=== PATIENT | male | born 1970 | race Caucasian/White ===

== ENCOUNTER 2017-05-04 06:52 | Emergency (ER) | payer BC, OTHER ==
[~2017-05-04] VITALS: Ht 177.8 cm; Wt 171.3 kg
[~2017-05-04 06:52] MED LIST: ABL10 PO; LPT40 PO; ONDA8TAB12 PO; SIME80CH23 PO; TPM100 PO
[2017-05-04 06:55] VITALS: Ht 177.8 cm; Wt 171.3 kg
--- NOTE | 2017-05-04 07:08 | EMERGENCY ROOM VISIT NOTE ---
History First contact with patient: 06:58 Chief Complaint: SHORTNESS OF BREATH Stated Complaint: CAN'T CATCH BREATH Nursing Triage Summary: Pt states unable to catch his breath since yesterday. Denies lightheadedness or cp. Denies recent illness. Denies cough. Denies hx of same. Uses cpap at night. History of Present Illness The patient is a 46 year old male who presents to the Emergency Room via private vehicle with complaints of "can't catch breath". The patient states that he does wear CPAP at night, and has been doing well up until yesterday when he returned home from his hunting camp he did not feel well. He describes it as "lethargic". He states he felt as though he just wanted to sleep. He notes that he also developed shortness of breath. He denies any chest pain with this. He feels as though he cannot fully catch his breath. He denies any fevers, cough or congestion. He notes that this shortness of breath is worse with exertion. He denies any recent leg swelling. There is no history of heart attack, CHF or PE that he is aware of. Review of Systems A complete 10-point Review of Systems was discussed with the patient, with pertinent positives and negatives listed in the History of Present Illness. All remaining Review of Systems questions can be considered negative unless otherwise specified. Past Medical/Surgical History Medical Problems: (1) Bipolar disorder (2) Depression (3) Dyslipidemia (4) Migraine (5) Obesity, morbid, BMI 40.0-49.9 (6) Obstructive sleep apnea on CPAP (7) Prediabetes (8) Syncope Surgical Problems: (1) H/O hernia repair Family History Cancer FH: CAD (coronary artery disease) GRANDFATHER (FL and CABG in his 60s) Stroke MOTHER (age 71) Social History Smoking Status: Never Smoker Alcohol Use: occasionally Drug Use: none Marital Status: Occupation Status: employed Current/Historical Medications Scheduled Aripiprazole (Abilify), 10 MG PO QPM Atorvastatin (Atorvastatin Calcium), 40 MG PO DAILY Topiramate (Topiramate), 100 MG PO BID Scheduled PRN Albuterol Hfa (Ventolin Hfa), 1-2 PUFFS INH Q6H PRN for SOB/Wheezing Physical Exam Vital Signs Date Time Temp Pulse Resp B/P (MAP) Pulse Ox O2 Delivery O2 Flow Rate FiO2 05/04/17 08:37 79 20 151/96 96 Room Air 05/04/17 07:15 72 05/04/17 07:15 72 20 137/86 95 Room Air 05/04/17 07:10 95 Room Air 05/04/17 07:05 95 Room Air 05/04/17 06:55 99 22 182/94 100 Room Air Physical Exam VITAL SIGNS - Vital signs and nursing notes were reviewed. Stable. GENERAL - 46-year-old male appearing his stated age who is in no acute distress but does appear short of breath while conversing. Communicates well with provider and answers questions appropriately. SKIN - Without rashes. HEAD - NC/AT. EYES -Sclera anicteric. EARS - No deformities of external structures noted on gross examination bilaterally. NOSE - Midline and without cyanosis. No epistaxis or purulent drainage noted. MOUTH/OROPHARYNX - Without perioral cyanosis. NECK - Neck with FROM. LUNGS - Chest wall symmetric without accessory muscle use, intercostals retractions, or central cyanosis. Normal vesicular breath sounds CTA B/L. No wheezes, rales, or rhonchi appreciated. CARDIAC - RRR with S1/S2. No murmur, rubs, or gallops appreciated. ABDOMEN - Abdominal contour normal without pulsations or visible masses. No tenderness. EXTREMITIES - No clubbing or peripheral cyanosis. No pretibial edema present.+5/ 5 strength noted in UE/LE bilaterally. NEUROLOGIC - Cranial nerves II through XII grossly intact. Sensory intact to light touch throughout. PSYCH - A&O, and cooperates fully with examiner. Pt is very pleasant and interacts well with examiner. Medical Decision & Procedures ER Provider Diagnostic Interpretation: SINGLE VIEW CHEST CLINICAL HISTORY: Dyspnea. FINDINGS: An AP, portable, upright chest radiograph is compared to study dated 04/18/2016. The examination is degraded by portable technique, large body habitus, and apical lordotic positioning. The heart is top normal for projection. There are low lung volumes with elevation of the right hemidiaphragm and bibasilar atelectasis. No large pleural effusion or pneumothorax is seen. The bony thorax is grossly intact. IMPRESSION: Low lung volumes with no acute cardiopulmonary abnormality. Electronically signed by: Tomasz Patel M.D. 05/04/2017 7:36 AM Dictated Date/Time: 05/04/2017 7:35 AM Laboratory Results 05/04/17 07:16 Red Blood Count 4.48, Mean Corpuscular Volume 96.2, Mean Corpuscular Hemoglobin 31.0, Mean Corpuscular Hemoglobin Concent 32.3, Mean Platelet Volume 10.0, Neutrophils (%) (Auto) 70.9, Lymphocytes (%) (Auto) 16.2, Monocytes (%) (Auto) 10.4, Eosinophils (%) (Auto) 1.7, Basophils (%) (Auto) 0.4, Neutrophils # (Auto ) 3.42, Lymphocytes # (Auto) 0.78, Monocytes # (Auto) 0.50, Eosinophils # (Auto ) 0.08, Basophils # (Auto) 0.02 05/04/17 07:16 Test 05/04/17 07:16 05/04/17 07:20 05/04/17 07:22 White Blood Count 4.82 K/uL (4.8-10.8) Red Blood Count 4.48 M/uL (4.7-6.1) Hemoglobin 13.9 g/dL (14.0-18.0) Hematocrit 43.1 % (42-52) Mean Corpuscular Volume 96.2 fL (80-100) Mean Corpuscular Hemoglobin 31.0 pg (25-34) Mean Corpuscular Hemoglobin Concent 32.3 g/dl (32-36) Platelet Count 182 K/uL (130-400) Mean Platelet Volume 10.0 fL (7.4-10.4) Neutrophils (%) (Auto) 70.9 % Lymphocytes (%) (Auto) 16.2 % Monocytes (%) (Auto) 10.4 % Eosinophils (%) (Auto) 1.7 % Basophils (%) (Auto) 0.4 % Neutrophils # (Auto) 3.42 K/uL (1.4-6.5) Lymphocytes # (Auto) 0.78 K/uL (1.2-3.4) Monocytes # (Auto) 0.50 K/uL (0.11-0.59) Eosinophils # (Auto) 0.08 K/uL (0-0.5) Basophils # (Auto) 0.02 K/uL (0-0.2) RDW Standard Deviation 47.0 fL (36.4-46.3) RDW Coefficient of Variation 13.4 % (11.5-14.5) Immature Granulocyte % (Auto) 0.4 % Immature Granulocyte # (Auto) 0.02 K/uL (0.00-0.02) Prothrombin Time 10.0 SECONDS (9.0-12.0) Prothromb Time International Ratio 0.9 (0.9-1.1) Activated Partial Thromboplast Time 26.0 SECONDS (21.0-31.0) Partial Thromboplastin Ratio 1.0 Anion Gap 9.0 mmol/L (3-11) Est Creatinine Clear Calc Drug Dose 174.6 ml/min Estimated GFR () 121.7 Estimated GFR (Non- 105.0 BUN/Creatinine Ratio 21.1 (10-20) Calcium Level 8.7 mg/dl (8.5-10.1) Magnesium Level 2.3 mg/dl (1.8-2.4) Total Bilirubin 0.4 mg/dl (0.2-1) Aspartate Amino Transf (AST/SGOT) 20 U/L (15-37) Alanine Aminotransferase (ALT/SGPT) 37 U/L (12-78) Alkaline Phosphatase 103 U/L (45-117) Troponin I < 0.015 ng/ml (0-0.045) Pro-B-Type Natriuretic Peptide 82 pg/ml (0-450) Total Protein 6.9 gm/dl (6.4-8.2) Albumin 3.7 gm/dl (3.4-5.0) Globulin 3.2 gm/dl (2.5-4.0) Albumin/Globulin Ratio 1.2 (0.9-2) Thyroid Stimulating Hormone (TSH) 2.830 uIu/ml (0.300-4.500) Chemistry Specimen Hemolysis Lyme Disease IgG Antibody NEG (NEG) Lyme Disease IgM Antibody NEG (NEG) Bedside Troponin I < 0.030 ng/ml (0-0.045) D-Dimer 280 ug/L FEU (0-500) Medications Administered Medications (Trade) Dose Ordered Sig/Rosalina Route Start Time Stop Time Status Last Admin Dose Admin Albuterol/ Ipratropium (Duoneb) 3 ml NOW STAT INH 05/04/17 07:43 05/04/17 07:44 DC 05/04/17 07:47 3 ML Medical Decision Patient was seen and evaluated as above. He presents to us today with shortness of breath. There is no chest pain. He is well on exam. He is not tachycardic and is saturating on room air 100%. Bedside EKG was obtained and reveals normal sinus rhythm, no ectopy or ischemic change. Patient's CBC reveals no leukocytosis. Slight anemia noted. There is no emergent metabolic process. Coags and d-dimer are normal. Patient's kidney function is appropriate. No evidence of liver failure. No evidence of heart failure and troponin is normal. TSH within normal limits. Lyme testing negative. Chest x- ray no acute process but there is borderline cardiomegaly. Patient was informed upon today's findings and I suspect is likely experiencing asthma. He does not smoke. With the d-dimer being normal, troponin being normal, chest x- ray being normal I do not suspect any emergent process. He is well on exam and was given a breathing treatment for 15 minutes and was feeling markedly improved. He was educated upon management, educated upon worrisome symptoms in which to return, had questions and provided discharge, and was discharged home in good condition. In evaluation treatment this patient following differential diagnoses were entertained: FL, PE, asthma, COPD, pericarditis, CHF, among others. Impression Primary Impression: Shortness of breath Departure Information Dispostion Home / Self-Care Condition GOOD Prescriptions Albuterol Hfa (VENTOLIN HFA) 200 Puffs/59153 Mcg Aers 1-2 PUFFS INH Q6H Y for SOB/Wheezing, #1 INHALER Prov: Emil Louis PA-C 05/04/17 Referrals No Doctor, Assigned (PCP) Patient Instructions [facility] Additional Instructions You have been treated in the Emergency Department your shortness of breath. Laboratory results and imaging studies have ruled out any emergent causes for your shortness of breath which would warrant admission or surgery. Albuterol inhaler 1-2 puffs every 4-6 hours as needed for your shortness of breath. Drink plenty of water and stay well hydrated. As with any trip to the Emergency Department, you should follow-up with your Primary Care Provider from today's visit. Return to the emergency department if your symptoms persist despite treatment plan outlined above or if the following symptoms occur: increased fevers, chills , worsening nausea/vomiting, blood in your stool or urine.
[2017-05-04 07:10] VITALS: O2SAT 95
[2017-05-04 07:26] LABS: BASO % 0.4 %; BASO ABS # 0.02 K/uL (0-0.2); COMPLETE YES; EOS % 1.7 %; HEMATOCRIT 43.1 % (42-52); IG% 0.4 %; LYMPH % 16.2 %; LYMPH ABS # 0.78 K/uL (1.2-3.4); MEAN CELL VOLUME 96.2 fL (80-100); MEAN CORPUSCULAR HGB CONC 32.3 g/dl (32-36); MONO % 10.4 %; NEUT % 70.9 %; PLATELET COUNT 182 K/uL (130-400); RED BLOOD COUNT 4.48 M/uL (4.7-6.1); WHITE BLOOD COUNT 4.82 K/uL (4.8-10.8)
[2017-05-04 07:33] LABS: INR 0.9 (0.9-1.1)
--- NOTE | 2017-05-04 07:38 | DIAGNOSTIC IMAGING REPORT ---
SINGLE VIEW CHEST CLINICAL HISTORY: Dyspnea. FINDINGS: An AP, portable, upright chest radiograph is compared to study dated 04/18/2016. The examination is degraded by portable technique, large body habitus, and apical lordotic positioning. The heart is top normal for projection. There are low lung volumes with elevation of the right hemidiaphragm and bibasilar atelectasis. No large pleural effusion or pneumothorax is seen. The bony thorax is grossly intact. IMPRESSION: Low lung volumes with no acute cardiopulmonary abnormality. Electronically signed by: Tomasz Patel M.D. 05/04/2017 7:36 AM Dictated Date/Time: 05/04/2017 7:35 AM
[2017-05-04] MEDS ORDERED: ALBUT/IPRATROP 3MG/0.5MG NEB 3 ML VIAL INH STA (07:43)
[2017-05-04 08:06] LABS: ALB/GLOB RATIO 1.2 (0.9-2); ALKALINE PHOSPHATASE 103 U/L (45-117); ALT/SGPT 37 U/L (12-78); AST/SGOT 20 U/L (15-37); BLOOD UREA NITROGEN 18 mg/dl (7-18); BUN/CREATININE RATIO 21.1 (10-20); CALCIUM 8.7 mg/dl (8.5-10.1); CARBON DIOXIDE 25 mmol/L (21-32); CHLORIDE 107 mmol/L (98-107); CREATININE 0.84 mg/dl (0.60-1.40); GLUCOSE 119 mg/dl (70-99); MAGNESIUM 2.3 mg/dl (1.8-2.4); POTASSIUM 4.5 mmol/L (3.5-5.1); SODIUM 141 mmol/L (136-145)
[2017-05-04 08:19] LABS: LYME DISEASE AB IGG NEG (NEG)
[2017-05-04 08:20] LABS: LYME DISEASE AB IGM NEG (NEG)
[2017-05-04] MEDS ORDERED: ALBUTEROL HFA 8 GM INHALER INH STA (09:12)
[2017-05-04] MEDS ORDERED: VNTHFA/IN INH (09:14)
[2017-05-04 09:19] VITALS: BP 116/69; PULSE 70; O2SAT 96
[2017-05-05] MEDS ORDERED: VNTHFA/IN INH (08:00)
== END 2017-05-04 09:28 | disposition home or self-care (01) ==
LOC: C.EDB 06:53
DX: R06.02 Shortness of breath (principal); D64.9 Anemia, unspecified; E78.5 Hyperlipidemia, unspecified; F31.9 Bipolar disorder, unspecified; G47.33 Obstructive sleep apnea (adult) (pediatric); Z98.890 Other specified postprocedural states; Z79.899 Other long term (current) drug therapy; Z80.9 Family history of malignant neoplasm, unspecified; Z82.3 Family history of stroke

== ENCOUNTER 2017-10-02 14:09 | Emergency (ER) | payer BC, OTHER ==
[~2017-10-02] VITALS: Ht 177.8 cm; Wt 160.9 kg
[~2017-10-02 14:09] MED LIST changes: -ONDA8TAB12 PO; -SIME80CH23 PO; +VNTHFA/IN INH
[2017-10-02 14:16] VITALS: BP 159/78; PULSE 94; TEMP 36.8; O2SAT 92; Ht 177.8 cm; Wt 160.9 kg
[2017-10-02] MEDS ORDERED: CEPH500C PO (14:30)
--- NOTE | 2017-10-02 14:31 | EMERGENCY ROOM VISIT NOTE ---
ED Visit Note First contact with patient: 14:18 CHIEF COMPLAINT: Lump of the left index finger HISTORY OF PRESENT ILLNESS: This 46-year-old male patient presents to the emergency department 1 day after they noticed a hard, red, tender area on the lateral left index finger. It is slowly getting larger, more painful and tender. No fever, chills, or loss of appetite. There has been no drainage from the area. There was no known injury to the area preceding the infection. They rate the pain as sharp and 6/10. Tetanus shot is up to date. They have tried no medications or therapies. The patient is not diabetic. The patient has no history of subcutaneous abscesses or cysts. 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 REVIEW OF SYSTEMS: A 10 system review of systems was performed with positives and pertinent negatives listed in the history of present illness. All other systems were reviewed and are negative. ALLERGIES: Latex, penicillin MEDICATIONS: "Something for cholesterol and bipolar" PMH: Bipolar disorder, hyperlipidemia, sleep apnea SOCIAL HISTORY: The patient lives locally with family. He denies drug, alcohol , tobacco use. PHYSICAL EXAM: Vital Signs: Reviewed Nurse's notes, vital signs stable. GENERAL : This is a 46-year-old white male, no acute distress, non toxic in appearance, well-developed well-nourished. SKIN: There is an erythematous slightly indurated area on the lateral right finger at the PIP joint which measures about 1 cm in diameter. It is not fluctuant and there is no pointing or drainage. There is slight erythema but no lymphangitis. Capillary refill less than 2 seconds. MUSCULOSKELETAL: There is mild limitation of the range of motion of the finger with flexion due to swelling and pain. EMERGENCY DEPARTMENT COURSE: I examined the patient. Due to the location of the cyst, I did encourage him to follow-up with orthopedics for possible drainage. He will be treated at this time with antibiotics, compression, and warm, moist compresses. The patient was agreeable to this plan of care. He is open to following up with orthopedics for possible drainage or removal of the cyst. I did offer to provide the patient with his first dose of antibiotics here in the emergency department, and he declines. Discharge instructions reviewed. The patient was discharged home in stable condition. I attest that I have personally reviewed the patient's current medication list. Blood Pressure Screening: Patient was found to have a slightly elevated blood pressure due to circumstances. I do not believe that the patient requires hypertension monitoring. Differential diagnosis includes ganglion cyst, sebaceous cyst, cellulitis, abscess, superficial thrombus, septic joint, necrotizing fasciitis, burn, dermatitis, impetigo, erythema multiforme, bite, osteomyelitis, Alvarez-Chris Syndrome, gangrene, malignancy, and others DIAGNOSIS: Ganglion cyst of the left index finger The chart was completed utilizing [employer] Speech voice recognition software. Grammatical errors, random word insertions, pronoun errors, and incomplete sentences are an occasional consequence of this system due to software limitations, ambient noise, and hardware issues. Any formal questions or concerns about the content, text, or information contained within the body of this dictation should be directly addressed to the provider for clarification. Problem List Medical Problems: (1) Bipolar disorder Status: Chronic (2) Depression Status: Chronic (3) Dyslipidemia Status: Chronic (4) Migraine Status: Chronic (5) Obesity, morbid, BMI 40.0-49.9 Status: Chronic (6) Prediabetes Status: Chronic Surgical Problems: (1) H/O hernia repair Status: Resolved Current/Historical Medications Scheduled Albuterol Hfa (Ventolin Hfa), 1-2 PUFFS INH Q6H Aripiprazole (Abilify), 10 MG PO QPM Atorvastatin (Lipitor), 40 MG PO DAILY Cephalexin Monohydrate (Keflex), 500 MG PO QID Topiramate (Topiramate), 100 MG PO BID Allergies Coded Allergies: Latex1 -Allergic Contact Dermititis (Verified Allergy, Intermediate, LOCAL RXN AT [facility]-OP, 05/05/17) Penicillins (Verified Allergy, Unknown, 05/05/17) Vital Signs Date Time Temp Pulse Resp B/P (MAP) Pulse Ox O2 Delivery O2 Flow Rate FiO2 10/02/17 14:16 36.8 94 18 159/78 92 Room Air Departure Information Impression Primary Impression: Ganglion cyst of finger of left hand Dispostion Home / Self-Care Condition GOOD Prescriptions Cephalexin Monohydrate (Keflex) 500 Mg Cap 500 MG PO QID for 10 Days, #40 CAP Prov: Padmini Sanchez PA-C 10/02/17 Referrals No Doctor, Assigned (PCP) Mohan Quezada D.O. Patient Instructions ED Cyst Ganglion, [facility] Additional Instructions You were seen in the emergency department today for a cyst of your left index finger. As discussed, based on the warmth and slight redness, I suspect it may be getting infected. Cephalexin(Keflex) 500mg: Take one pill four times daily for 10 days for your skin infection. All antibiotics can cause diarrhea. If this occurs and you feel worse or it does not resolve in 1-2 days follow up with your doctor or return to the Emergency Department as this could be signs of serious underlying problems. Any medication can cause an allergic reaction, stop the pills immediately and return to the ER for rash, hives, breathing difficulties, or swelling. Ibuprofen(Motrin, Advil) may be used for fever or pain. Use 600mg every six hours as needed. Take with food. Avoid using more than 2400mg in a 24 hour period. Do not use 2400mg per day for more than three consecutive days without physician direction. Prolonged inappropriate use can lead to stomach upset or ulcers. (AND/OR) Acetaminophen(Tylenol) may be used for fever or pain. Use 1000mg every six hours as needed. Avoid using more than 3000mg in a 24 hour period. Use the Coban and to provide compression over the finger and help with swelling and pain. Use gentle massage and warm, moist compresses several times per day to help potentially absorb the fluid within the cyst. Follow-up with orthopedics if no improvement within 3-5 days. Return to the emergency department for any significantly worsening redness, drainage, numbness or tingling, fevers, systemic symptoms, or other concerning symptoms.
== END 2017-10-02 14:39 | disposition home or self-care (01) ==
LOC: C.EDB 14:10 → C.EDD 14:39
DX: M67.442 Ganglion, left hand (principal); Z88.0 Allergy status to penicillin; Z91.040 Latex allergy status; F31.9 Bipolar disorder, unspecified; E78.5 Hyperlipidemia, unspecified; G47.30 Sleep apnea, unspecified; Z79.899 Other long term (current) drug therapy; R03.0 Elevated blood-pressure reading, without diagnosis of hypertension; E66.01 Morbid (severe) obesity due to excess calories; Z68.41 Body mass index [BMI] 40.0-44.9, adult; R73.03 Prediabetes

== ENCOUNTER 2018-01-22 13:29 | Emergency (ER) | payer OTHER, BC ==
[~2018-01-22] VITALS: Ht 177.8 cm; Wt 160.0 kg
[~2018-01-22 13:29] MED LIST changes: -VNTHFA/IN INH
[2018-01-22 13:35] VITALS: Ht 177.8 cm; Wt 160.0 kg
[2018-01-22] MEDS ORDERED: IBUPROFEN 600 MG TAB PO STA (13:46)
--- NOTE | 2018-01-22 14:02 | EMERGENCY ROOM VISIT NOTE ---
ED Visit Note First contact with patient: 13:38 CHIEF COMPLAINT: Right shoulder and upper arm pain HISTORY OF PRESENT ILLNESS: This 47-year-old male patient presents to the emergency department by private vehicle complaining of pain in the right upper arm and shoulder started earlier today. 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 He states that he felt out popping or tearing sensation in his upper biceps area. There is now limitation of motion of the arm because of the pain. The pain is moderate, constant and increases with motion of the hand and arm. The patient states the pain is aching and 8/10. The patient has taken no medications for relief of the pain. No previous significant shoulder disease or injury to the right arm. No numbness or tingling. Denies any neck or back pain. No chest pain or shortness of breath. No abdominal pain or nausea/ vomiting. No cough. He is right-hand dominant. REVIEW OF SYSTEMS: A 6 system review of systems was performed with positives and pertinent negatives in the HPI. ALLERGIES: Reviewed in chart, see below. MEDICATIONS: Reviewed in chart, see below. PMH: Reviewed in chart, see problem list below. SOCIAL HISTORY: Lives at home. He denies tobacco use. PHYSICAL EXAM: Vital Signs: Reviewed nurse's notes, vital signs stable. GENERAL : Pleasant and cooperative, in no acute distress, but appears to be in pain, well-developed, well-nourished. MUSCULOSKELETAL: There is no deformity in the contour of the right shoulder and there are no toby deformities noted. There is no sulcus sign. There is tenderness over the proximal and mid biceps muscle to palpation, no swelling, ecchymosis or erythema. Contour of the biceps and triceps muscles appears to be normal. The patient's range of motion is limited due to pain. Increased pain in the biceps area with flexion and extension of the elbow, but full strength against resistance. Supraspinatus strength 5/5. There is no clavicle tenderness. No tenderness of the humerus, elbow, wrist, or hand. 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 Radial pulse 2+. NECK: No tenderness to palpation over the cervical spine. Normal range of motion of the neck without pain. HEART: Regular rate and rhythm without murmurs gallops or rubs. LUNGS: Clear to auscultation bilaterally without wheezes, rales or rhonchi. No accessory muscle use. No retractions. NEURO: The patient is alert and oriented to person, place, and time. Normal sensation to light and sharp touch. Capillary refill less than 2 seconds. IMAGING: R SHOULDER MIN 2 VIEWS ROUTINE CLINICAL HISTORY: 47 years-old Male presenting with pain in shoulder, biceps, eval fx, dislocation. TECHNIQUE: Internal rotation, external rotation, Grashey views of the right shoulder were obtained. COMPARISON: Chest x-ray from 05/05/2017. FINDINGS: Glenohumeral and acromioclavicular joints congruent. No acute fracture or malalignment. No advanced degenerative change. No radiographic soft tissue abnormality. IMPRESSION: No acute osseous injury. ----- R HUMERUS MIN 2 VIEWS ROUTINE CLINICAL HISTORY: 47 years-old Male presenting with pain in biceps area, eval fx. TECHNIQUE: Frontal and lateral views of the right humerus were obtained. COMPARISON: None. FINDINGS: Glenohumeral and elbow joints grossly congruent. No acute fracture or malalignment. No advanced degenerative change. No radiographic soft tissue abnormality. IMPRESSION: No acute osseous injury. EMERGENCY DEPARTMENT COURSE: I examined the patient. Differential diagnosis includes muscle sprain/strain, muscle tear, tendon rupture, fracture, dislocation, among others. Patient was given ice pack and Motrin for the pain. An X-ray of the right humerus and right shoulder was reviewed by myself and read by the radiologist and shows no fractures or dislocations. The patient was placed in a right arm sling under my supervision and the position was satisfactory, neurovascularly intact upon recheck. Patient was educated regarding continued care and pain management at home, follow-up, and return precautions, he verbalized understanding. The patient was discharged home in stable condition and ambulatory. Problem List Medical Problems: (1) Bipolar disorder Status: Chronic (2) Depression Status: Chronic (3) Dyslipidemia Status: Chronic (4) Migraine Status: Chronic (5) Obesity, morbid, BMI 40.0-49.9 Status: Chronic (6) Prediabetes Status: Chronic Surgical Problems: (1) H/O hernia repair Status: Resolved Current/Historical Medications Scheduled Aripiprazole (Abilify), 10 MG PO QPM Atorvastatin (Lipitor), 40 MG PO DAILY Topiramate (Topiramate), 100 MG PO BID Allergies Coded Allergies: Latex1 -Allergic Contact Dermititis (Verified Allergy, Intermediate, LOCAL RXN AT [facility]-OP, 01/22/18) Penicillins (Verified Allergy, Unknown, 01/22/18) Vital Signs Date Time Temp Pulse Resp B/P (MAP) Pulse Ox O2 Delivery O2 Flow Rate FiO2 01/22/18 15:56 36.6 88 19 125/72 95 01/22/18 13:35 36.6 86 18 119/69 93 Room Air Medications Administered Medications (Trade) Dose Ordered Sig/Rosalina Route Start Time Stop Time Status Last Admin Dose Admin Ibuprofen (Motrin Tab) 600 mg NOW STAT PO 01/22/18 13:46 01/22/18 13:48 DC 01/22/18 13:56 600 MG Departure Information Impression Primary Impression: Injury of right upper arm Dispostion Home / Self-Care Condition GOOD Referrals Riley Mar MD (PCP) Mohan Quezada D.OAmbar Patient Instructions ED Strain Muscle Ext, [facility] Additional Instructions DISCHARGE INSTRUCTIONS & TREATMENT: You have been evaluated and treated in the emergency department today for your right arm injury. X-rays today do not show any fractures or dislocations. Rest the arm in a sling until the pain subsides. Apply ice to the area of pain intermittently and frequently over the next two days. Ibuprofen 600 mg and Tylenol 650 mg every 6 hours if needed for pain. For best results, alternate between ibuprofen and Tylenol every 3 hours. Follow-up with the orthopedic surgeon within the next week for further management if your symptoms do not seem to be improving. Please return to the emergency department for severe worsening pain or swelling of the arm, loss of feeling or movement in the arm, or any other concerns. Work Instructions Specific Date: 01/26/2018 Additional Work Instructions: Please excuse the patient from work for the next 3 days due to injury. Problem Qualifiers Primary Impression: Injury of right upper arm Encounter type: initial encounter Qualified Codes: S49.91XA - Unspecified injury of right shoulder and upper arm, initial encounter
--- NOTE | 2018-01-22 14:21 | DIAGNOSTIC IMAGING REPORT ---
R SHOULDER MIN 2 VIEWS ROUTINE CLINICAL HISTORY: 47 years-old Male presenting with pain in shoulder, biceps, eval fx, dislocation. TECHNIQUE: Internal rotation, external rotation, Grashey views of the right shoulder were obtained. COMPARISON: Chest x-ray from 05/05/2017. FINDINGS: Glenohumeral and acromioclavicular joints congruent. No acute fracture or malalignment. No advanced degenerative change. No radiographic soft tissue abnormality. IMPRESSION: No acute osseous injury. Electronically signed by: Spenser Robins M.D. 01/22/2018 2:19 PM Dictated Date/Time: 01/22/2018 2:19 PM
--- NOTE | 2018-01-22 14:21 | DIAGNOSTIC IMAGING REPORT ---
R HUMERUS MIN 2 VIEWS ROUTINE CLINICAL HISTORY: 47 years-old Male presenting with pain in biceps area, eval fx. TECHNIQUE: Frontal and lateral views of the right humerus were obtained. COMPARISON: None. FINDINGS: Glenohumeral and elbow joints grossly congruent. No acute fracture or malalignment. No advanced degenerative change. No radiographic soft tissue abnormality. IMPRESSION: No acute osseous injury. Electronically signed by: Spenesr Robins M.D. 01/22/2018 2:20 PM Dictated Date/Time: 01/22/2018 2:20 PM
[2018-01-22 15:56] VITALS: BP 125/72; PULSE 88; TEMP 36.6; O2SAT 95
== END 2018-01-22 15:57 | disposition home or self-care (01) ==
LOC: C.EDB 13:31 → C.EDD 15:57
DX: S49.91XA Unspecified injury of right shoulder and upper arm, initial encounter (principal); X50.9XXA Other and unspecified overexertion or strenuous movements or postures, initial encounter; F41.9 Anxiety disorder, unspecified; F32.9 Major depressive disorder, single episode, unspecified; E78.5 Hyperlipidemia, unspecified; G43.909 Migraine, unspecified, not intractable, without status migrainosus; E66.9 Obesity, unspecified; R73.03 Prediabetes; Z88.0 Allergy status to penicillin; Z91.040 Latex allergy status

== ENCOUNTER 2018-08-21 07:33 | Observation (INO) ==
--- NOTE | 2018-08-21 08:13 | XRay Report ---
XR chest 1V portable HISTORY: 47 years-old Male weakness acute weakness COMPARISON: Chest radiograph 05/04/2017 TECHNIQUE: Portable AP view of the chest FINDINGS: Eventration of right hemidiaphragm redemonstrated. Cardiomediastinal and hilar silhouettes are unchan ged. There is no pneumothorax, pleural effusion, focal airspace consolidation or overt pulmonary jeff a. Bones of the chest appear to be grossly intact. IMPRESSION: No acute process. The above report was generated using voice recognition software. It may contain grammatical, syntax o r spelling errors. Electronically signed by: Francesco Romero M.D. 08/21/2018 8:12 AM
[2018-08-21 08:31] LABS: Appearance Urine Clear (Clear); Bilirubin Urine Negative (Negative); Blood Urine Negative (Negative); Color Urine Yellow; Glucose Urine UA Negative (Negative); Ketones Urine Negative (Negative); Leukocyte Esterase Urine Negative (Negative); Nitrite Urine Negative (Negative); Protein Urine Negative (Negative); Urobilinogen Urine Negative (Negative)
[2018-08-21 08:39] LABS: Basophils # (auto) 0.02 K/uL (0-0.2); Basophils % (auto) 0.3 %; Eosinophils # (auto) 0.13 K/uL (0-0.5); Eosinophils % (auto) 2.1 %; Hematocrit (blood only) 43.6 % (42-52); Hemoglobin 14.7 g/dL (14.0-18.0); Immature Granulocytes # (auto) 0.03 K/uL (0.00-0.02); Immature Granulocytes % (auto) 0.5 %; Lymphocytes # (auto) 1.02 K/uL (1.2-3.4); Lymphocytes % (auto) 16.1 %; Mean Corpuscular Hgb Conc 33.7 g/dL (32-36); Mean Corpuscular Volume 94.6 fL (80-100); Mean Platelet Volume 10.5 fL (7.4-10.4); Monocytes # (auto) 0.55 K/uL (0.11-0.59); Monocytes % (auto) 8.7 %; Neutrophils # (auto) 4.58 K/uL (1.4-6.5); Neutrophils % (auto) 72.3 %; Platelet Count 191 K/uL (130-400); RDW Coefficient of Variation 13.4 % (11.5-14.5); RDW Standard Deviation 46.3 fL (36.4-46.3); Red Blood Count 4.61 M/uL (4.7-6.1); White Blood Count 6.33 K/uL (4.8-10.8)
[2018-08-21 08:56] LABS: Alanine Aminotransferase 35 U/L (12-78); Albumin Level 3.8 gm/dl (3.4-5.0); Aspartate Aminotransferase 16 U/L (15-37); BUN Creatinine Ratio 25.8 (10-20); Blood Urea Nitrogen 25 mg/dl (7-18); Carbon Dioxide 25 mmol/L (21-32); Chloride 113 mmol/L (98-107); Creatinine Clr Calc Pharmacy 149.9 ml/min; Est GFR (African American) 108.7; Est GFR (Non-African American) 93.8; Glucose 136 mg/dl (70-99); Magnesium 2.2 mg/dl (1.8-2.4); Potassium 3.9 mmol/L (3.5-5.1); Sodium 143 mmol/L (136-145)
[2018-08-21 09:07] LABS: Albumin Globulin Ratio 0.9 (0.9-2); Alkaline Phosphatase 123 U/L (45-117); Bilirubin,Total 0.6 mg/dl (0.2-1); Globulin 4.1 gm/dl (2.5-4.0); Total Protein 7.9 gm/dl (6.4-8.2); Troponin I < 0.015 ng/ml (0-0.045)
--- NOTE | 2018-08-21 10:30 | History & Physical Report ---
Date of Service August 21, 2018 Assessment & Plan (1) Syncope: Recurrent syncope with three episodes in past 24 hours - based on clinical picture, symptoms seem most likely due to orthostasis. - Monitor pt on telemetry to r/o arrhythmia - Check ECHO although suspicion low - Consult cardiology for any additional recommendations - repeat coat checker as outpatient? - Orthostatic vital signs Q8 hrs - IV fluids x 1 liter although clinically does not appear significantly dehydrated - encourage oral (water instead of coffee) intake - May consider trial of midodrine if no improvement with IV fluids (2) Prediabetes: - Diabetic diet - Recheck A1c in AM - last checked 9 months ago and was 6.1 (3) Bipolar disorder: - Continue home meds - per pt, this is stable (4) Morbid obesity: morbid obesity with BMI of 53.5 (5) Obstructive sleep apnea on CPAP: - Pt's to bring in his CPAP from home for him to use at night - order placed (6) Dyslipidemia: - Continue outpatient statin Patient seen and reviewed with collaborating physician, Dr. Millard. Plan of care discussed and as outlined above. Pt to be followed by Dr. Gallagher starting tomorrow. Wendy Carlin PA-C History of Present Illness Primary Care Provider: PCP - Riley Mar This is a 47 y/o male with a PMH of morbid obesity, ANGEL on CPAP, bipolar disorder and dyslipidemia who presents with recurrent syncope. The patient reports being in his usual state of health until last week when he developed vomiting and diarrhea x 3 days associated with a gastroenteritis. Symptoms improved and he has been feeling at baseline since Monday (four days ago). Yesterday morning, he went to get ready for work and "blacked out" while he was standing to get dressed. He presented to the ED yesterday and underwent work-up that was negative. He was feeling fine so he was discharged to home. He did feel more exhausted this usual so went to between around 7:30 pm. Slept fine but got up early this morning to go to the bathroom - abruptly passed out, landing on the bed. He went back to bed and slept until this morning around 6 am when he again attempted to get up to go to the bathroom. He again passed out, this time landing on the floor. He denies hitting his head during any of these episodes although he did have a headache. CT of the head yesterday was negative. No headache today but does complain of neck soreness (attributes to s leeping in awkward position). Pt did have similar episodes of syncope in 2013 and 2015 but has never had episodes so frequently. He did have a cardiac work- up in 2016 including Zio monitor which was normal. He was having palpitations at that time, which per pt were ultimately attributed to anxiety. He denies palpitations or anxiety associated with current symptoms. He denies chest pain/pressure, wheezing, shortness of breath or ESPINOSA. Episodes of syncope may be preceded by a few seconds of lightheadedness but pt denies any other prodrome. Denies associated vertigo, nausea, vomiting. He does note transient "red spots" in his vision at times after the syncopal episode but no diplopia or other visual changes. Pt does have chronic hearing loss and tinnitus related to his employment but this does not change with these syncopal episodes. Allergies Allergy/AdvReac Type Severity Reaction Status Date / Time Penicillins Allergy Severe Rash Verified 08/21/18 07:45 latex Allergy Intermediate LOCAL RXN Verified 08/21/18 07:45 AT INCISION SITE POST-OP Home Medications Home Medications Medication Instructions Recorded Confirmed Type aripiprazole [Abilify] 10 mg PO HS 04/02/18 08/21/18 History atorvastatin 40 mg PO QAM 04/02/18 08/21/18 History acetaminophen [Tylenol Extra 1,000 mg PO Q8 PRN #30 tab 04/12/18 08/21/18 Rx Strength] ibuprofen [Advil] 600 mg PO QID PRN 08/20/18 08/21/18 History topiramate See Rx Instructions .ROUTE .COMPLEX 08/21/18 08/21/18 History Past Med/Surg History Medical History Morbid obesity (Chronic) Sleep apnea (Chronic) CPAP Hyperlipidemia (Chronic) Depression Bipolar disorder (Chronic) Obesity Surgical History History of herniorrhaphy UMBILICAL History of tonsillectomy History of adenoidectomy History of surgery CYST REMOVED FROM LEFT INDEX FINGER Family History Mother Stroke Father Cancer Brain and lung Grandfather (Maternal) Heart disease Social History Preferred Language: Slovenian Communication Ability: Effective Beliefs That Will Affect Care: None marital status: Current Living Situation: Spouse current occupational status: employed 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 Other Information That Helps Us Care for You: No Feels Safe at Home: Yes Safety Concerns: Feels Safe At This Time Smoking Status: Never smoker Hx Alcohol Use: Yes Hx Substance Use: No caffeine: Yes Review of Systems All systems reviewed & are unremarkable except as noted in HPI & below Constitutional: no fever, no chills, no sweats, no fatigue, no malaise, no weakness and no anorexia Eyes: as per Subjective / HPI; no blind spots, no diplopia and no worsening vision Ear, Nose, Mouth, Throat: + tinnitus (chronic) and + hearing loss (chronic); no nasal congestion, no sore throat and no dysphagia Respiratory: no cough, no dyspnea, no dyspnea on exertion, no hemoptysis and no wheezing Cardiovascular: + lightheadedness, + syncope and + edema (ongoing issues - mostly in evenings); no chest pain with activity, no dyspnea on exertion, no paroxysmal nocturnal dyspnea and no palpitations Gastrointestinal: no abdominal pain, no heartburn, no nausea, no vomiting and no change in stools Genitourinary (Male): no dysuria, no difficulty urinating, no urinary frequency, no decreased urination and no hematuria Musculoskeletal: + neck pain (neck sore this AM); no radicular pain, no joint pain and no muscle weakness Integumentary: no rash, no non-healing lesions and no skin ulcer Neurologic: as per Subjective / HPI; no gait abnormality, no paralysis, no numbness, no paresthesia, no tremor(s), no seizure-like activity and no abnormal speech Psychiatric: + anxiety (history of anxiety although states does not feel at present); no paranoia, no auditory hallucinations, no visual hallucinations and no substance abuse Endocrine: no polydipsia, no polyphagia and no polyuria Physical Exam Vital Signs (Past 24 Hours): Last Vital Signs Temp 36.7 C 08/21/18 07:35 Pulse 80 08/21/18 09:25 Resp 16 08/21/18 09:25 BP 141/71 H 08/21/18 09:25 Pulse Ox 96 08/21/18 09:25 Constitutional: WD/WN, vitals as above + morbidly obese; no acute distress Eyes: PERRL, conjunctivae normal, anicteric sclerae EOM intact bilaterally ENMT: external ear and nose normal, oropharynx normal Throat: uvula midline Neck: trachea midline Respiratory: no respiratory distress and does not use accessory muscles Auscultation: lungs clear to auscultation bilaterally; no crackles, no rhonchi and no wheezes Cardiovascular: Rate/Rhythm: regular rate and regular rhythm Heart Sounds: no gallop, no murmur and no cardiac rub Palpation: no thrill Vessels: no JVD and no carotid bruit Extremities: normal capillary refill; no calf tenderness and no pedal edema Gastrointestinal (Abdomen): Inspection/Auscultation: normal bowel sounds; abdomen not distended Percussion/Palpation: abdomen soft; abdomen nontender Musculoskeletal: no cyanosis or clubbing, extremities motor strength 5/5 Skin: no rashes, warm and dry normal turgor Neurologic: CN's II-XI intact bilaterally and moves all extremities; no focal motor deficits Cranial Nerves: able to rotate head bilaterally Psychiatric: A+Ox3, euthymic affect Lymphatic: no cervical lymphadenopathy Results & Data Laboratory Results Laboratory Results - last 24 hr 08/21/18 08/21/18 08/21/18 08:20 08:25 08:25 WBC 6.33 RBC 4.61 L Hgb 14.7 Hct 43.6 MCV 94.6 MCH 31.9 MCHC 33.7 RDW Std Deviation 46.3 RDW Coeff of Charles 13.4 Plt Count 191 MPV 10.5 H Immature Gran % (Auto) 0.5 Neut % (Auto) 72.3 Lymph % (Auto) 16.1 [place] % (Auto) 8.7 Eos % (Auto) 2.1 Baso % (Auto) 0.3 Immature Gran # (Auto) 0.03 H Neut # (Auto) 4.58 Lymph # (Auto) 1.02 L [place] # (Auto) 0.55 Eos # (Auto) 0.13 Baso # (Auto) 0.02 Sodium 143 Potassium 3.9 Chloride 113 H Carbon Dioxide 25 Anion Gap 5.0 BUN 25 H Creatinine 0.96 Est Cr Clr Drug Dosing 149.9 Est GFR ( Amer) 108.7 Est GFR (Non-Af Amer) 93.8 BUN/Creatinine Ratio 25.8 H Glucose 136 H Calcium 9.0 Magnesium 2.2 Total Bilirubin 0.6 AST 16 ALT 35 Alkaline Phosphatase 123 H Troponin I < 0.015 Total Protein 7.9 Albumin 3.8 Globulin 4.1 H Albumin/Globulin Ratio 0.9 TSH 2.900 Urine Color Yellow Urine Appearance Clear Urine pH 5.0 Ur Specific [place] 1.020 Urine Protein Negative Urine Glucose (UA) Negative Urine Ketones Negative Urine Blood Negative Urine Nitrite Negative Urine Bilirubin Negative Urine Urobilinogen Negative Ur Leukocyte Esterase Negative Diagnostic Findings Chest X-ray 08/21/18 - IMPRESSION: No acute process. CT Head 08/20/18 - Impression:No acute intracranial abnormality. Supervising Physician Co-Signing Physician Notes I have seen and examined the patient with physician employee relations assistant and agree with assessment and plan and would like to add that given patient's history of syncope there appears to be association with syncope with changes in position. Patient appears to have been having syncopal symptoms after getting up from sitting down to standing up each time he had the 3 syncope episodes. Patient does not report chest pain with symptoms. I have advised patient to take his time between getting up and sitting down while in the hospital and later when he is at home. Patient is a very large man and has morbid obesity with BMI of 53.5 and may having to move large body weight while sitting down or getting up may contribute to orthostatic hypotension or vasovagal symptoms. Will give IV fluids and check orthostatic blood pressures. If patient continues to have syncopal symptoms despite IV fluids then a trial of midrodrine may be considered. Patient will be monitored on telemetry in case symptoms are from arrhythmias but currently is sinus in rhythm on monitoring. Will obtain echocardiogram as well to complete cardiac workup to rule out cardiogenic alternative causes of syncope. Patient should be on CPAP at night for history of obstructive sleep apnea on CPAP On physical exam General: no acute distress Neck: thick neck Lungs: Clear to auscultation bilaterally, no wheezing Heart: regular rate and rhythm Abdomen: truncal obesity, abdomen is soft and nontender and bowel sounds are present Extremities: no calf tenderness Patient has been admitted by Dr. Millard and will be followed by Dr. Elliott starting 08/22/18 (1) Syncope Syncope type: unspecified Qualified Code(s): R55 - Syncope and collapse
[2018-08-21] MEDS ORDERED: TOPIRAMATE 100 MG TAB PO SCH ×2 (12:00→21:00)
[2018-08-21] MEDS ORDERED: SODIUM CHLORIDE 0.45 % 1,000 ML IV SCH (12:00)
--- NOTE | 2018-08-21 13:47 | Emergency Department Note ---
Entered by Cleopatra Dailey acting as a scribe for Skip Barger MD ED Provider Note CHIEF COMPLAINT: Syncope HISTORY OF PRESENT ILLNESS: The patient is a 47 year old male who presents to the Emergency Room with complaints of two episodes of syncope beginning last night. He reports he was seen in the ED following an episode of syncope yesterday morning, and had two further episodes following discharge. The patient states both of these episodes occurred when he got up after laying down. He notes he had vomiting and diarrhea last week, which have since resolved. The patient reports intermittent lig htheadedness when sitting up. He states he has some neck pain, which began this morning. Pt denies headache, fevers, chills, diaphoresis, visual changes, chest pain, breathing difficulties, nausea, vomiting, abdominal pain, back pain, melena, hematochezia, urinary symptoms, numbness, weakness, lymphadenopathy, rash, or other complaints. REVIEW OF SYSTEMS: See HPI for pertinent positives and negatives. A total of ten systems were reviewed and were otherwise negative. PMHx/PSHx: Sleep apnea, depression, bipolar disorder, tonsilectomy, adenoidectomy, herniorrhaphy. SOCIAL HISTORY: Patient lives at home. PHYSICAL EXAM: GENERAL: Awake, alert, well-appearing, in no distress HENT: Normocephalic, atraumatic. Oropharynx unremarkable. EYES: Normal conjunctiva. Sclera non-icteric. NECK: Inspection normal. Non-tender. Supple. No nuchal rigidity. FROM. No masses. RESPIRATORY: Clear to auscultation. No wheezes. No rales. Normal respiratory effort. CARDIAC: Normal rate. Normal rhythm. No murmurs. No rubs. Extremities warm and well perfused. Pulses equal. No JVD. GI: Soft, non-distended. No tenderness to palpation. No rebound or guarding. No masses. RECTAL: Deferred. MUSCULOSKELETAL: Atraumatic. Chest examination reveals no tenderness. The back is symmetrical on inspection without obvious abnormality. There is no CVA tenderness to palpation. No joint edema. LOWER EXTREMITIES: Calves are equal size bilaterally and non-tender. No edema. No discoloration. NEURO: Normal sensorium. No sensory or motor deficits noted. SKIN: No rash or jaundice noted. EMERGENCY DEPARTMENT COURSE: 0748: Past medical records reviewed. The patient was evaluated in room C5, and a complete history and physical examination were performed. 922: I reviewed the patient's case with Sally Carlin PA-C, [facility] hospitalist. She will evaluate the patient for further management. 27: Upon reevaluation, the patient is resting. I discussed test results. They verbalized agreement with the treatment plan. MEDICAL DECISION MAKING: Triage Nursing notes reviewed and agree them. The patient's history was concerning for syncope. Differential diagnosis: Etiologies such as infection, hypoglycemia, electrolyte abnormalities, cardiac sources, intracerebral event, toxicologic, neurologic, as well as others were entertained. Physical examination: Benign as above. ER treatment provided: No medication given. Diagnostics interpretation by me: ECG: Normal sinus. No dysrhythmia. No ectopy. The labs revealed an unremarkable CBC and chemistry panel. Minimal hyperglycemia noted. Imaging studies: Deferred The patient had a negative workup yesterday for syncope. He went home and had 2 more additional syncopal episodes. Further management in the hospital will be necessary. Patient is in agreement. Consultation: A consultation was placed with the hospitalist. The case was discussed and diagnostics were reviewed. The patient was evaluated in the ER for further treatment. IMPRESSION: Syncope. PLAN: Being evaluated by hospitalist. The scribe's documentation has been prepared under my direction and personally reviewed by me in its entirety. I confirm that the note above accurately reflects all work, treatment, procedures, and medical decision making performed by me. Impression & Plan Syncope Past Med/Surg History Medical History Morbid obesity (Chronic) Sleep apnea (Chronic) CPAP Hyperlipidemia (Chronic) Depression Bipolar disorder (Chronic) Obesity Surgical History History of herniorrhaphy UMBILICAL History of tonsillectomy History of adenoidectomy History of surgery CYST REMOVED FROM LEFT INDEX FINGER Family History Mother Stroke Father Cancer Brain and lung Grandfather (Maternal) Heart disease Social History Preferred Language: [place] Communication Ability: Effective Beliefs That Will Affect Care: None marital status: Current Living Situation: Spouse current occupational status: employed 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 Other Information That Helps Us Care for You: No Feels Safe at Home: Yes Safety Concerns: Feels Safe At This Time Smoking Status: Never smoker Hx Alcohol Use: Yes Hx Substance Use: No caffeine: Yes Results & Data Vital Signs Vital Signs - 24 hr 08/21/18 07:35 08/21/18 08:05 08/21/18 08:08 Temperature 36.7 C Temperature Source Oral Sepsis Recent Fever Within 48 Hours No Sepsis New/Unexplained Change in Mental Status No Sepsis Action Taken by Nursing No Action Required Pulse Rate - Lying 73 Pulse Rate - Sitting 77 Pulse Rate - Standing 76 Pulse Rate 77 Pulse Rate [Left Finger] Pulse Rhythm [Left Finger] Respiratory Rate 18 Respiratory Effort / Characteristics Non-Labored Spontaneous Respiratory Depth Normal Respiratory Pattern Regular Blood Pressure - Lying 139/75 Blood Pressure - Sitting 152/83 H Blood Pressure- Standing 137/76 Blood Pressure 153/77 H Blood Pressure [Left Arm] Blood Pressure Mean 102 Blood Pressure Mean [Left Arm] Blood Pressure Position Sitting Blood Pressure Position [Left Arm] Pulse Oximetry 96 96 Oxygen Delivery Method Room Air Room Air 08/21/18 08:12 08/21/18 09:25 08/21/18 09:55 Temperature Temperature Source Sepsis Recent Fever Within 48 Hours Sepsis New/Unexplained Change in Mental Status Sepsis Action Taken by Nursing Pulse Rate - Lying Pulse Rate - Sitting Pulse Rate - Standing Pulse Rate Pulse Rate [Left Finger] 72 80 Pulse Rhythm [Left Finger] Respiratory Rate 20 16 Respiratory Effort / Characteristics Non-Labored Spontaneous Short of Breath SOB on Exertion Respiratory Depth Respiratory Pattern Regular Blood Pressure - Lying Blood Pressure - Sitting Blood Pressure- Standing Blood Pressure Blood Pressure [Left Arm] 137/76 141/71 H Blood Pressure Mean Blood Pressure Mean [Left Arm] 96 94 Blood Pressure Position Blood Pressure Position [Left Arm] Pulse Oximetry 95 96 Oxygen Delivery Method Room Air Room Air 08/21/18 10:39 08/21/18 11:04 08/21/18 12:42 Temperature 36.7 C 36.7 C Temperature Source Oral Oral Sepsis Recent Fever Within 48 Hours Sepsis New/Unexplained Change in Mental Status Sepsis Action Taken by Nursing Pulse Rate - Lying Pulse Rate - Sitting Pulse Rate - Standing Pulse Rate Pulse Rate [Left Finger] 82 68 67 Pulse Rhythm [Left Finger] Regular Respiratory Rate 18 18 18 Respiratory Effort / Characteristics Respiratory Depth Respiratory Pattern Blood Pressure - Lying Blood Pressure - Sitting Blood Pressure- Standing Blood Pressure Blood Pressure [Left Arm] 147/81 H 122/79 131/80 Blood Pressure Mean Blood Pressure Mean [Left Arm] 103 93 97 Blood Pressure Position Blood Pressure Position [Left Arm] Sitting Pulse Oximetry 96 96 97 Oxygen Delivery Method Room Air Room Air Home Medications Current Medication List: was personally reviewed by me Laboratory Data Attestation: I reviewed the patient's lab results. Result diagrams: 08/21/18 08:25 08/21/18 08:25 Lab Results 08/21/18 08/21/18 08/21/18 Range/Units 08:20 08:25 08:25 WBC 6.33 (4.8-10.8) K/uL RBC 4.61 L (4.7-6.1) M/uL Hgb 14.7 (14.0-18.0) g/dL Hct 43.6 (42-52) % MCV 94.6 (80-100) fL MCH 31.9 (25-34) pg MCHC 33.7 (32-36) g/dL RDW Std Deviation 46.3 (36.4-46.3) fL RDW Coeff of [place] 13.4 (11.5-14.5) % Plt Count 191 (130-400) K/uL MPV 10.5 H (7.4-10.4) fL Immature Gran % (Auto) 0.5 % Neut % (Auto) 72.3 % Lymph % (Auto) 16.1 % [place] % (Auto) 8.7 % Eos % (Auto) 2.1 % Baso % (Auto) 0.3 % Immature Gran # (Auto) 0.03 H (0.00-0.02) K/uL Neut # (Auto) 4.58 (1.4-6.5) K/uL Lymph # (Auto) 1.02 L (1.2-3.4) K/uL [place] # (Auto) 0.55 (0.11-0.59) K/uL Eos # (Auto) 0.13 (0-0.5) K/uL Baso # (Auto) 0.02 (0-0.2) K/uL Sodium 143 (136-145) mmol/L Potassium 3.9 (3.5-5.1) mmol/L Chloride 113 H (98-107) mmol/L Carbon Dioxide 25 (21-32) mmol/L Anion Gap 5.0 (3-11) BUN 25 H (7-18) mg/dl Creatinine 0.96 (0.6-1.4) mg/dl Est Cr Clr Drug Dosing 149.9 ml/min Est GFR ( Amer) 108.7 Est GFR (Non-Af Amer) 93.8 BUN/Creatinine Ratio 25.8 H (10-20) Glucose 136 H (70-99) mg/dl Calcium 9.0 (8.5-10.1) mg/dl Magnesium 2.2 (1.8-2.4) mg/dl Total Bilirubin 0.6 (0.2-1) mg/dl AST 16 (15-37) U/L ALT 35 (12-78) U/L Alkaline Phosphatase 123 H (45-117) U/L Troponin I < 0.015 (0-0.045) ng/ml Total Protein 7.9 (6.4-8.2) gm/dl Albumin 3.8 (3.4-5.0) gm/dl Globulin 4.1 H (2.5-4.0) gm/dl Albumin/Globulin Ratio 0.9 (0.9-2) TSH 2.900 (0.300-4.500) uIu/ml Urine Color Yellow Urine Appearance Clear (Clear) Urine pH 5.0 (4.5-7.5) Ur Specific [place] 1.020 (1.000-1.030) Urine Protein Negative (Negative) Urine Glucose (UA) Negative (Negative) Urine Ketones Negative (Negative) Urine Blood Negative (Negative) Urine Nitrite Negative (Negative) Urine Bilirubin Negative (Negative) Urine Urobilinogen Negative (Negative) Ur Leukocyte Esterase Negative (Negative) Administered Medications Sodium Chloride (1/2 Nss) 1,000 mls @ 100 mls/hr IV .Q10H MICHELLE Stop: 08/21/18 21:59 Last Admin: 08/21/18 12:58 Dose: 100 mls/hr Documented by: [id number] Imaging Data Radiologist's Impression: Radiology results as stated below per my review and the radiologist's interpretation: XR chest 1V portable HISTORY: 47 years-old Male weakness acute weakness COMPARISON: Chest radiograph 05/04/2017 TECHNIQUE: Portable AP view of the chest FINDINGS: Eventration of right hemidiaphragm redemonstrated. Cardiomediastinal and hilar silhouettes are unchanged. There is no pneumothorax, pleural effusion, focal airspace consolidation or overt pulmonary edema. Bones of the chest appear to be grossly intact. IMPRESSION: No acute process. The above report was generated using voice recognition software. It may contain grammatical, syntax or spelling errors. Electronically signed by: Francesco Romero M.D. 08/21/2018 8:12 AM ECG Data Attestation: I personally reviewed and interpreted this ECG as follows: Indication: syncope Rate (beats per minute): 69 Rhythm: normal sinus Findings: + other (Normal intervals.); no PAC, no PVC, no ST depression and no ST elevation Blood Pressure Blood Pressure Findings: Elevated blood pressure Blood Pressure Disposition: further management by hospitalist Discharge Plan Visit Data *Final* Discharge Date/Time: 08/21/18 10:44 Chief Complaint: Syncope Stated Complaint: BLACKING OUT ED Provider: Skip Barger Discharge Problem: Syncope Patient Disposition: Admitted As Inpatient Discharge Instructions Interventions: ED Discharge Assessment Last Done: 08/21/18 10:44 Discharge Problem: Syncope Qualifiers: Syncope type: unspecified Qualified Code(s): R55 - Syncope and collapse The scribe's documentation has been prepared under my direction and personally reviewed by me in its entirety. I confirm that the note above accurately reflects all work, treatment, procedures, and medical decision making performed by me.
[2018-08-21] MEDS ORDERED: ARIPiprazole 10 MG TAB PO SCH (21:00)
[2018-08-22 07:24] LABS: Estimated Average Glucose 134 mg/dl; Hemoglobin A1C 6.3 % (4.5-5.6)
[2018-08-22] MEDS ORDERED: ATORVASTATIN 40 MG TAB PO SCH (09:00)
[2018-08-22] MEDS ORDERED: TOPIRAMATE 100 MG TAB PO SCH (09:00)
--- NOTE | 2018-08-22 09:56 | Cardiology Progress Note ---
Date of Service August 22, 2018 Assessment & Plan (1) Orthostatic syncope: due to viral gastroenteritis and decreased po intake now asymptomatic, drinking well and urinating received 2L NSS vitals still slightly orthostatic but asymptomatic ok to d/c to home no cardiac f/u necessary f/u with pcp counseled on avoidance, second admission for orthostatic hypotension Subjective Pt seen and examined, states that he feels back to normal. Drinking well. Urinating a lot. Would like to be discharged. Denies lighteadedness, dizziness or syncope tele reviewed: sinus rhythm without arrhythmia Review of Systems All systems reviewed & are unremarkable except as noted in HPI & below Physical Exam Vital Signs (Past 24 Hours): Last Vital Signs Temp 36.4 C L 08/22/18 07:03 Pulse 60 08/22/18 02:54 Resp 18 08/22/18 02:54 BP 108/68 08/22/18 02:54 Pulse Ox 91 08/22/18 07:03 Physical Exam: Physical Exam: General: Awake, alert and oriented x 3. No acute distress. HEENT: Normocephalic, atraumatic. Pupils equal, round and reactive to light and accommodation. Extraocular muscles are intact. Anicteric sclera. Moist mucous membranes. Neck: No JVD. No bruit. Cardiovascular: Regular. No S-4. Normal S-1 and S-2. No S-3. No murmurs, rubs or gallops. Pulmonary: Clear to auscultation bilaterally. No rales, rhonchi, or wheezing. Abdomen: Bowel sounds x 4, soft. No rebound, guarding or tenderness. No organomegaly. Extremities: No clubbing, cyanosis or edema. +2 pedal pulses bilaterally. Skin: Warm and dry.
[2018-08-22] MEDS ORDERED: SODIUM CHLORIDE 0.9% 1000ML 1,000 ML IV SCH (10:00)
[2018-08-22 10:18] LABS: Calcium 8.2 mg/dl (8.5-10.1); Creatinine Clr Calc Pharmacy 149.9 ml/min; Est GFR (African American) 108.7; Est GFR (Non-African American) 93.8; Potassium 4.1 mmol/L (3.5-5.1)
--- NOTE | 2018-08-22 10:35 | Consultation Report ---
DATE OF CONSULTATION: 08/21/2018 CONSULTATION REQUESTED BY: Dr. Millard. REASON FOR CONSULTATION: Syncope. HISTORY OF PRESENT ILLNESS: The patient is a very pleasant 47-year-old gentleman who presented to [facility] with complaints of 3 days of lightheadedness and recurrent syncope. The patient states that he has been very sick with a viral gastroenteritis for several days leading up to his presentation. He states he has not been able to keep anything down and has been having vomiting and diarrhea nonstop. Several days of nausea, vomiting and diarrhea. He is unable to keep down any significant liquids. Then a few days prior to presentation, he noticed when he tried to stand up, he got very lightheaded and fell down. He believes he lost consciousness for few seconds. This happened several times and the patient was also feeling more and more tired, exhausted and worn out. Finally, came into the Emergency Room when he was found to be significantly hypovolemic and started on IV fluids and admitted to telemetry. He also had orthostatic vital signs. Of note, the patient had the exact same presentation in 2016 for which he was treated with IV fluids for orthostatic hypotension. PAST SURGICAL HISTORY: 1. Hernia repair. 2. Tonsil and adenoidectomy. 3. Cyst removal from the finger. MEDICAL ILLNESSES: 1. Morbid obesity. 2. Obstructive sleep apnea. 3. Bipolar disorder. 4. Depression. 5. Hyperlipidemia. FAMILY HISTORY: Denies any premature coronary artery disease or sudden cardiac . SOCIAL HISTORY: The patient is a nonsmoker, drinks occasional alcohol. Denies any recreational drug use. He is and lives at home with his and children. 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 REVIEW OF SYSTEMS: As per HPI. All other review of systems reviewed and negative at this time. ALLERGIES: 1. PENICILLIN. 2. LATEX. MEDICATIONS AN OUTPATIENT: 1. Atorvastatin 40 mg daily. 2. Abilify daily. PHYSICAL EXAMINATION: VITALS: Temperature 36.7, pulse 68, respiratory rate 12, blood pressure 122/79. GENERAL: Awake, alert, oriented x3, in no acute distress. HEENT: Normocephalic, atraumatic. Pupils equal, round, reactive to light and accommodation. Extraocular muscles intact. Anicteric sclerae. Moist mucous membranes. NECK: No JVD, no bruit. CARDIOVASCULAR: Regular. No S4. Normal S1 and S2. No S3. No murmurs, rubs or gallops. PULMONARY: Clear to auscultation bilaterally. No rales, rhonchi or wheezing. ABDOMEN: Bowel sounds x4, soft. No rebound, guarding, tenderness. No organomegaly. EXTREMITIES: No clubbing, cyanosis or edema. +2 pedal pulses bilaterally. SKIN: Warm and dry. TEST RESULTS: A 12-lead EKG performed in the Emergency Department independently reviewed at this time shows normal sinus rhythm at 69 beats per minute, normal axis, normal intervals, normal study. IMPRESSION: 1. Orthostatic syncope. 2. Viral gastroenteritis, the cause of number 1. RECOMMENDATIONS: It was my pleasure to see the patient in consultation today. Given the fact that the patient is significantly volume depleted in the setting of viral gastroenteritis, I believe he is suffering from orthostatic syncope and should be treated with IV fluids. No further cardiac testing or intervention is necessary.
[2018-08-22] MEDS ORDERED: PERFLUTREN LIPID MICROSPHERE (DEFINITY) IV ONE (11:36)
--- NOTE | 2018-08-22 12:08 | Hospitalist Progress Note ---
Date of Service August 22, 2018 Assessment & Plan (1) Orthostatic syncope: Likely due to viral gastroenteritis and decreased po intake Asymptomatic since admission Received 2L NSS Does not have any orthostatic change in blood pressure and her pulse Ambulating well without any symptoms Appreciate cardiology input and recommendation Counseled on avoidance, second admission for orthostatic hypotension Advised to drink more fluid We will discharge home this afternoon Other medical conditions remained stable and includes Obstructive sleep apnea on CPAP Bipolar disorder Hyperlipidemia Migraine Follow-up appointment with primary care physician in 1 week Subjective The patient was seen and examined in telemetry floor He is a 47 y/o male with a PMH of morbid obesity, ANGEL on CPAP, bipolar disorder and dyslipidemia who presents with recurrent syncope. Denies any symptoms as of today He has been ambulating without any dizziness No more episodes of syncope while in the hospital He wants to go home today Eyes: as per Subjective / HPI; no blind spots, no diplopia and no worsening vision Ear, Nose, Mouth, Throat: + tinnitus (chronic) and + hearing loss (chronic); no nasal congestion, no sore throat and no dysphagia Cardiovascular: + lightheadedness, + syncope and + edema (ongoing issues - mostly in evenings); no chest pain with activity, no dyspnea on exertion, no paroxysmal nocturnal dyspnea and no palpitations Musculoskeletal: + neck pain (neck sore this AM); no radicular pain, no joint pain and no muscle weakness Neurologic: as per Subjective / HPI; no gait abnormality, no paralysis, no numbness, no paresthesia, no tremor(s), no seizure-like activity and no abnormal speech Psychiatric: + anxiety (history of anxiety although states does not feel at present); no paranoia, no auditory hallucinations, no visual hallucinations and no substance abuse Physical Exam Vital Signs (Past 24 Hours): Last Vital Signs Temp 36.4 C L 08/22/18 11:24 Pulse 64 08/22/18 11:24 Resp 21 08/22/18 11:24 BP 152/81 H 08/22/18 11:24 Pulse Ox 99 08/22/18 11:24 Physical Exam: No apparent distress at rest Constitutional: WD/WN, vitals as above + morbidly obese; no acute distress Eyes: PERRL, conjunctivae normal, anicteric sclerae EOM intact bilaterally ENMT: external ear and nose normal, oropharynx normal Throat: uvula midline Neck: trachea midline Respiratory: Auscultation: lungs clear to auscultation bilaterally and + rhonchi Cardiovascular: Rate/Rhythm: regular rate and regular rhythm Heart Sounds: no gallop, no murmur and no cardiac rub Palpation: no thrill Vessels: no JVD and no carotid bruit Extremities: normal capillary refill; no calf tenderness and no pedal edema Gastrointestinal (Abdomen): Inspection/Auscultation: normal bowel sounds; abdomen not distended Percussion/Palpation: abdomen soft; abdomen nontender Musculoskeletal: no cyanosis or clubbing, extremities motor strength 5/5 Skin: no rashes, warm and dry normal turgor Neurologic: CN's II-XI intact bilaterally and moves all extremities; no focal motor deficits Psychiatric: A+Ox3, euthymic affect Lymphatic: no cervical lymphadenopathy Results & Data Laboratory Results [facility] 08/22/18 06:29 Sodium 140 Potassium 4.1 Chloride 110 H Carbon Dioxide 26 BUN 18 Creatinine 0.96 Glucose 134 H Calcium 8.2 L Medications Administered Current Inpatient Medications Aripiprazole (Abilify) 10 mg PO [facility] Stop: 09/20/18 20:59 Last Admin: 08/21/18 20:50 Dose: 10 mg Documented by: Atorvastatin Calcium (Lipitor) 40 mg PO [facility] Stop: 09/21/18 08:59 Last Admin: 08/22/18 08:56 Dose: 40 mg Documented by: Topiramate (Topamax) 200 mg PO [facility] Stop: 09/21/18 08:59 Last Admin: 08/22/18 08:55 Dose: 200 mg Documented by: Topiramate (Topamax) 100 mg PO [facility] Stop: 09/20/18 20:59 Last Admin: 08/21/18 20:50 Dose: 100 mg Documented by:
--- NOTE | 2018-08-23 07:32 | Discharge Summary ---
Date of Service August 23, 2018 Admission HPI Per Admitting Provider Primary Care Provider: PCP - Riley Mar This is a 47 y/o male with a PMH of morbid obesity, ANGEL on CPAP, bipolar disorder and dyslipidemia who presents with recurrent syncope. The patient reports being in his usual state of health until last week when he developed vomiting and diarrhea x 3 days associated with a gastroenteritis. Symptoms improved and he has been feeling at baseline since Monday (four days ago). Yesterday morning, he went to get ready for work and "blacked out" while he was standing to get dressed. He presented to the ED yesterday and underwent work-up that was negative. He was feeling fine so he was discharged to home. He did feel more exhausted this usual so went to between around 7:30 pm. Slept fine but got up early this morning to go to the bathroom - abruptly passed out, la nding on the bed. He went back to bed and slept until this morning around 6 am when he again attempted to get up to go to the bathroom. He again passed out, this time landing on the floor. He denies hitting his head during any of these episodes although he did have a headache. CT of the head yesterday was negative. No headache today but does complain of neck soreness (attributes to sleeping in awkward position). Pt did have similar episodes of syncope in 2014 and 2016 but has never had episodes so frequently. He did have a cardiac work- up in 2016 including Zio monitor which was normal. He was having palpitations at that time, which per pt were ultimately attributed to anxiety. He denies palpitations or anxiety associated with current symptoms. He denies chest pain/pressure, wheezing, shortness of breath or ESPINOSA. Episodes of syncope may be preceded by a few seconds of lightheadedness but pt denies any other prodrome. Denies associated vertigo, nausea, vomiting. He does note transient "red spots" in his vision at times after the syncopal episode but no diplopia or other visual changes. Pt does have chronic hearing loss and tinnitus related to his employment but this does not change with these syncopal episodes. Admission Exam Per Admitting Provider Vital Signs (Past 24 Hours): Last Vital Signs Temp 36.7 C 08/21/18 07:35 Pulse 80 03/19/19 09:25 Resp 16 08/21/18 09:25 BP 141/71 H 08/21/18 09:25 Pulse Ox 96 08/21/18 09:25 Constitutional: WD/WN, vitals as above + morbidly obese; no acute distress Eyes: PERRL, conjunctivae normal, anicteric sclerae EOM intact bilaterally ENMT: external ear and nose normal, oropharynx normal Throat: uvula midline Neck: trachea midline Respiratory: no respiratory distress and does not use accessory muscles Auscultation: lungs clear to auscultation bilaterally; no crackles, no rhonchi and no wheezes Cardiovascular: Rate/Rhythm: regular rate and regular rhythm Heart Sounds: no gallop, no murmur and no cardiac rub Palpation: no thrill Vessels: no JVD and no carotid bruit Extremities: normal capillary refill; no calf tenderness and no pedal edema Gastrointestinal (Abdomen): Inspection/Auscultation: normal bowel sounds; abdomen not distended Percussion/Palpation: abdomen soft; abdomen nontender Musculoskeletal: no cyanosis or clubbing, extremities motor strength 5/5 Skin: no rashes, warm and dry normal turgor Neurologic: CN's II-XI intact bilaterally and moves all extremities; no focal motor deficits Cranial Nerves: able to rotate head bilaterally Psychiatric: A+Ox3, euthymic affect Lymphatic: no cervical lymphadenopathy Principal Diagnosis Syncope likely secondary to dehydration Discharge Exam Constitutional WD/WN, vitals as above + morbidly obese; no acute distress Eyes PERRL, conjunctivae normal, anicteric sclerae EOM intact bilaterally ENMT external ear and nose normal, oropharynx normal Throat: uvula midline Neck trachea midline Respiratory no respiratory distress and does not use accessory muscles Auscultation: lungs clear to auscultation bilaterally and + rhonchi Cardiovascular Rate/Rhythm: regular rate and regular rhythm Heart Sounds: no gallop, no murmur and no cardiac rub Palpation: no thrill Vessels: no JVD and no carotid bruit Extremities: normal capillary refill; no calf tenderness and no pedal edema Gastrointestinal (Abdomen) Inspection/Auscultation: normal bowel sounds; abdomen not distended Percussion/Palpation: abdomen soft; abdomen nontender Musculoskeletal no cyanosis or clubbing, extremities motor strength 5/5 Skin no rashes, warm and dry normal turgor Neurologic CN's II-XI intact bilaterally and moves all extremities; no focal motor deficits Cranial Nerves: able to rotate head bilaterally Psychiatric A+Ox3, euthymic affect Lymphatic no cervical lymphadenopathy Discharge Data Allergies Allergy/AdvReac Type Severity Reaction Status Date / Time Penicillins Allergy Severe Rash Verified 08/21/18 07:45 latex Allergy Intermediate LOCAL RXN Verified 08/21/18 07:45 AT INC[facility] S[facility] POST-OP Consultations 08/21/18 09:32 ED Decision to Admit Stat 08/21/18 11:04 Consult Cardiology Routine Hospital Course (1) Orthostatic syncope: Likely due to viral gastroenteritis and decreased po intake Asymptomatic since admission Received 2L NSS Does not have any orthostatic change in blood pressure and her pulse Ambulating well without any symptoms Appreciate cardiology input and recommendation Counseled on avoidance, second admission for orthostatic hypotension Advised to drink more fluid We will discharge home this afternoon Other medical conditions remained stable and includes Obstructive sleep apnea on CPAP Bipolar disorder Hyperlipidemia Migraine Follow-up appointment with primary care physician in 1 week Total Time Total Time Spent Total Time Spent (In Minutes): 35 minutes Total Time Includes: Examination of the Patient, Discharge Planning, Medication Reconciliation and Communication With Other Providers Discharge Plan Discharge Items Patient Disposition: Home - Self-Care Reason For Visit: RECURRING SYNCOPE Discharge Diagnosis: Syncope likely secondary to dehydration Condition: Good Discharge Goals: Decrease discomfort, Improve function and Increase independence Activity: Resume your previous activity Non-emergency contact: Primary Care Provider Call non-emergency contact if: you have any medication questions and your symptoms worsen Follow-up/Referrals: Riley Mar M.D. [Primary Care Provider] - 08/27/18 12:45 pm (Your appointment is with Dr. Barragan) Diet: Heart Healthy Addtl Provider Instructions: Try to drink more fluid to keep you hydrated Prescriptions: Continued atorvastatin 40 mg Tablet 40 mg PO QAM RF: 0 aripiprazole [Abilify] 10 mg Tablet 10 mg PO HS RF: 0 acetaminophen [Tylenol Extra Strength] 500 mg tablet 1,000 mg PO Q8 PRN (Reason: pain) Qty: 30 RF: 0 ibuprofen [Advil] 200 mg Tablet 600 mg PO QID PRN (Reason: Pain) RF: 0 topiramate 100 mg tablet See Rx Instructions .ROUTE .COMPLEX RF: 0 Stand-Alone Forms: [employer]/Other Patient Handouts: Prediabetes, Diabetes Meal Planning Discharge Orders: Discharge Order (Routine); Ordered 08/22/18 Ordered By: Dawson Gallagher Admission Data Admit Date/Time: 08/21/18 10:12 Attending Provider: Dawson Gallagher Admit Provider: Servando Limon Primary Care Provider: Riley Mar Other Providers: Corby Millard ; Pawan Jeter ; Servando Limon Service: Telemetry Other Interventions: Discharge Summary Assessment (RN) Last Done: 08/22/18 13:39 DC Date/Time DO NOT enter until pt leaves facility: 08/22/18 13:56
== END 2018-08-22 13:56 | disposition home or self-care (01) ==
LOC: 2S 07:33 → ED 07:33 → SUATTDRO 10:12 → 2S 10:44

== ENCOUNTER 2020-02-13 10:57 | Observation (INO) ==
--- NOTE | 2020-02-13 11:23 | Emergency Department Note ---
Impression & Plan Substernal chest pain ED Provider Note INFORMANT: Patient ED PROVIDER(S): Skip Barger MD CHIEF COMPLAINT: Chest pain PLAN: Disposition: Admitted Condition: Good MEDICAL DECISION MAKING: Patient presented with substernal chest pain that was resolved on initial evaluation. His ECG did not reveal any acute findings. Blood work was unremarkable including d-dimer and troponin. Chest x-ray was negative. The patient had a recurrent episode of chest pain. He was reevaluated. Patient's repeat ECG did not reveal any acute changes. He was given a sublingual nitroglycerin and his pain resolved shortly thereafter. Due to this issue further management in the hospital will be necessary for chest pain rule out. Patient was in agreement. Consultation was made with the [facility] service. The patient was evaluated in ER for further management. Triage Nursing notes reviewed and agree them. Vital Signs: reviewed and remarkable for no significant abnormalities Differential diagnosis: Cardiac ischemia, aortic dissection, pulmonary embolism, pneumothorax, pneumonia, pericarditis, myocarditis, esophageal rupture, GERD, cholecystitis, pancreatitis, musculoskeletal, as well as other pathologies. Diagnostics interpreted by me: ECG #1: Rate:67 Rhythm:Normal sinus [place]:Normal QRS:Normal ST segements:No elevation or depression Other:No PACs or PVCs ECG: #2 Rate: 71 Rhythm:Normal sinus [place]:Normal QRS:Normal. Poor R wave progression. ST segements:No elevation or depression Other:No PACs or PVCs Cardiac Monitoring: Cardiac monitoring ordered by me: The patient was placed on continuous cardiac monitoring and observed. It revealed a normal sinus rhythm at 73 beats per minute without ectopy or evidence of dysrhythmia. Imaging studies: Chest x-ray. Findings: A chest x-ray was performed and revealed no pneumothorax, effusion, infiltrate, pulmonary edema, free air under the diaphragm, or wide mediastinum. Impression: No acute disease. Consultation(s): [facility]. singer, [facility] HPI: The patient is a 49 year old male who presents to the Emergency Room with complaints of chest pain, substernal. This started this morning and is nearly resolved. The patient also notes the following associated symptoms, very minimal SOB. The patient has been given ASA relieving factors. Current pain is rated as 0/10. Pt denies LOC, headache, fevers, chills, diaphoresis, visual changes, neck pain, breathing difficulties, nausea, vomiting, abdominal pain, back pain, melena, hematochezia, urinary symptoms, numbness, weakness, lymphadenopathy, rash, or other complaints. ROS: See above HPI for pertinent positives & negatives. A total of 10 systems reviewed and were otherwise negative. PAST MEDICAL HISTORY:See Below, syncope PAST SURGICAL HISTORY:See Below, FAMILY HISTORY:See Below SOCIAL HISTORY:See Below, no tobacco HOME MEDICATIONS:See Below ALLERGIES:See Below VITALS:See Below PHYSICAL EXAMINATION: GENERAL: Awake, alert, well-appearing, in no distress HENT: Normocephalic, atraumatic. Oropharynx unremarkable. EYES: Normal conjunctiva. Sclera non-icteric. NECK: Inspection normal. Non-tender. Supple. No nuchal rigidity. FROM. No masses. RESPIRATORY: Clear to auscultation. No wheezes. No rales. Normal respiratory effort. CARDIAC: Normal rate. Normal rhythm. No murmurs. No rubs. Extremities warm and well perfused. Pulses equal. No JVD. GI: Soft, non-distended. No tenderness to palpation. No rebound or guarding. No masses. RECTAL: Deferred. MUSCULOSKELETAL: Atraumatic. Chest examination reveals no tenderness. The back is symmetrical on inspection without obvious abnormality. There is no CVA tenderness to palpation. No joint edema. LOWER EXTREMITIES: Calves are equal size bilaterally and non-tender. No edema. Chronic venous discoloration. NEURO: Normal sensorium. No sensory or motor deficits noted. SKIN: No rash or jaundice noted. Skip Barger MD Past Med/Surg History Medical History (Updated 02/13/20 @ 11:20 by Skip Barger MD) Bipolar disorder Depression Hyperlipidemia Morbid obesity Sleep apnea CPAP Surgical History H/O shoulder surgery right shoulder scope History of adenoidectomy History of herniorrhaphy UMBILICAL History of surgery CYST REMOVED FROM LEFT INDEX FINGER History of tonsillectomy Family History Mother Stroke Father Cancer Brain and lung Grandfather (Maternal) Heart disease Social History Smoking Status: Never smoker Second Hand Exposure: No; Hx Alcohol Use: Yes Alcohol type: beer Alcohol Intake Frequency Comment: six pack of beer on weekends Hx Substance Use: No Preferred Language: Luxembourgish Communication Ability: Effective 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 Required: No Beliefs That Will Affect Care: None marital status: Current Living Situation: Family current occupational status: employed 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 Feels Safe at Home: Yes caffeine: Yes Allergies Allergies Allergy/AdvReac Type Severity Reaction Status Date / Time Penicillins Allergy Severe Rash Verified 02/13/20 12:18 latex Allergy Intermediate Rash Verified 02/13/20 12:18 Home Meds Home Medications Medication Instructions Recorded Confirmed aripiprazole [Abilify] 10 mg PO HS 04/02/18 02/13/20 atorvastatin 40 mg PO QAM 04/02/18 02/13/20 topiramate [Topamax] 100 mg PO BID 08/21/18 02/13/20 Results & Data (ED) Vital Signs Vital Signs - 24 hr 02/13/20 11:02 02/13/20 11:03 02/13/20 11:04 Temperature 36.7 C Temperature Source Oral Pulse Rate 76 73 72 Pulse Rate from SpO2 Sensor 69 73 Pulse Rhythm Regular Pulse Strength Normal Respiratory Rate 17 19 23 Respiratory Effort / Characteristics Non-Labored Spontaneous Respiratory Depth Normal Respiratory Pattern Regular Blood Pressure 133/72 133/72 Blood Pressure Mean 82 92 Blood Pressure Position Lying Pulse Oximetry 97 96 97 Oxygen Delivery Method Room Air Sepsis Recent Fever Within 48 Hours No Sepsis New/Unexplained Change in Mental Status N/A Sepsis Action Taken by Nursing No Action Required 02/13/20 11:15 02/13/20 11:16 02/13/20 11:30 Temperature Temperature Source Pulse Rate 70 72 70 Pulse Rate from SpO2 Sensor 72 70 Pulse Rhythm Pulse Strength Respiratory Rate 21 24 24 Respiratory Effort / Characteristics Respiratory Depth Respiratory Pattern Blood Pressure 117/68 127/74 Blood Pressure Mean 79 98 Blood Pressure Position Pulse Oximetry 97 96 Oxygen Delivery Method Room Air Sepsis Recent Fever Within 48 Hours Sepsis New/Unexplained Change in Mental Status Sepsis Action Taken by Nursing 02/13/20 11:31 02/13/20 11:45 02/13/20 11:46 Temperature Temperature Source Pulse Rate 70 73 84 Pulse Rate from SpO2 Sensor Pulse Rhythm Pulse Strength Respiratory Rate 18 24 25 H Respiratory Effort / Characteristics Respiratory Depth Respiratory Pattern Blood Pressure 115/85 Blood Pressure Mean 96 Blood Pressure Position Pulse Oximetry Oxygen Delivery Method Sepsis Recent Fever Within 48 Hours Sepsis New/Unexplained Change in Mental Status Sepsis Action Taken by Nursing 02/13/20 12:00 02/13/20 12:01 02/13/20 12:15 Temperature Temperature Source Pulse Rate 75 69 74 Pulse Rate from SpO2 Sensor 75 72 75 Pulse Rhythm Pulse Strength Respiratory Rate 20 18 24 Respiratory Effort / Characteristics Respiratory Depth Respiratory Pattern Blood Pressure 129/69 118/82 Blood Pressure Mean 87 99 Blood Pressure Position Pulse Oximetry 95 97 97 Oxygen Delivery Method Sepsis Recent Fever Within 48 Hours Sepsis New/Unexplained Change in Mental Status Sepsis Action Taken by Nursing 02/13/20 12:16 02/13/20 12:30 02/13/20 12:39 Temperature Temperature Source Pulse Rate 73 73 74 Pulse Rate from SpO2 Sensor 73 71 76 Pulse Rhythm Pulse Strength Respiratory Rate 24 18 16 Respiratory Effort / Characteristics Respiratory Depth Respiratory Pattern Blood Pressure 125/77 Blood Pressure Mean 92 Blood Pressure Position Pulse Oximetry 97 98 97 Oxygen Delivery Method Sepsis Recent Fever Within 48 Hours Sepsis New/Unexplained Change in Mental Status Sepsis Action Taken by Nursing 02/13/20 12:40 02/13/20 12:45 02/13/20 13:01 Temperature Temperature Source Pulse Rate 72 68 79 Pulse Rate from SpO2 Sensor 72 68 78 Pulse Rhythm Pulse Strength Respiratory Rate 21 22 18 Respiratory Effort / Characteristics Respiratory Depth Respiratory Pattern Blood Pressure 124/77 117/75 Blood Pressure Mean 95 83 Blood Pressure Position Pulse Oximetry 99 98 97 Oxygen Delivery Method Sepsis Recent Fever Within 48 Hours Sepsis New/Unexplained Change in Mental Status Sepsis Action Taken by Nursing 02/13/20 13:16 Temperature Temperature Source Pulse Rate 73 Pulse Rate from SpO2 Sensor 73 Pulse Rhythm Pulse Strength Respiratory Rate 18 Respiratory Effort / Characteristics Respiratory Depth Respiratory Pattern Blood Pressure 142/77 H Blood Pressure Mean 96 Blood Pressure Position Pulse Oximetry 98 Oxygen Delivery Method Sepsis Recent Fever Within 48 Hours Sepsis New/Unexplained Change in Mental Status Sepsis Action Taken by Nursing Laboratory Data Result diagrams: 02/13/20 11:34 02/13/20 11:34 Lab Results 02/13/20 02/13/20 02/13/20 Range/Units 11:34 11:34 11:34 WBC 6.21 (4.8-10.8) K/uL RBC 4.72 (4.7-6.1) M/uL Hgb 13.8 L (14.0-18.0) g/dL Hct 43.9 (42-52) % MCV 93.0 (80-100) fL MCH 29.2 (25-34) pg MCHC 31.4 L (32-36) g/dL RDW Std Deviation 46.5 H (36.4-46.3) fL RDW Coeff of Charles 13.8 (11.5-14.5) % Plt Count 185 (130-400) K/uL MPV 10.9 H (7.4-10.4) fL Immature Gran % (Auto) 0.6 % Neut % (Auto) 75.4 % Lymph % (Auto) 15.1 % [place] % (Auto) 7.2 % Eos % (Auto) 1.4 % Baso % (Auto) 0.3 % Neut # (Auto) 4.67 (1.4-6.5) K/uL Lymph # (Auto) 0.94 L (1.2-3.4) K/uL [place] # (Auto) 0.45 (0.11-0.59) K/uL Eos # (Auto) 0.09 (0-0.5) K/uL Baso # (Auto) 0.02 (0-0.2) K/uL Immature Gran # (Auto) 0.04 H (0.00-0.02) K/uL PT 10.3 (9.0-12.0) Seconds INR 1.0 (0.9-1.1) APTT 27.5 (21.0-31.0) Seconds PTT Ratio 1.0 D-Dimer 340 (0-500) ug/L FEU Sodium 141 (136-145) mmol/L Potassium 4.1 (3.5-5.1) mmol/L Chloride 112 H (98-107) mmol/L Carbon Dioxide 21 (21-32) mmol/L Anion Gap 9.0 (3-11) BUN 17 (7-18) mg/dl Creatinine 0.82 (0.6-1.4) mg/dl Est Cr Clr Drug Dosing 171.5 ml/min Est GFR ( Amer) 120.3 Est GFR (Non-Af Amer) 103.8 BUN/Creatinine Ratio 20.8 H (10-20) Glucose 119 H (70-99) mg/dl Calcium 8.6 (8.5-10.1) mg/dl Total Bilirubin 0.5 (0.2-1) mg/dl AST 26 (15-37) U/L ALT 44 (12-78) U/L Alkaline Phosphatase 103 (45-117) U/L Troponin I < 0.015 (0-0.045) ng/ml Total Protein 7.2 (6.4-8.2) gm/dl Albumin 3.6 (3.4-5.0) gm/dl Globulin 3.6 (2.5-4.0) gm/dl Albumin/Globulin Ratio 1.0 (0.9-2) Lipase 105 (73-393) U/L Specimen Hemolysis Administered Medications Discontinued Medications Sodium Chloride (Nss 1000ml) 500 mls @ 999 mls/hr IV .Q31M ONE Stop: 02/13/20 13:10 Last Admin: 02/13/20 12:53 Dose: 999 mls/hr Documented by: [id number] Nitroglycerin (Nitroglycerin Sl 0.4 Mg/Tab Tab) 0.4 mg SL NOW STA Stop: 02/13/20 12:41 Last Admin: 02/13/20 12:45 Dose: 0.4 mg Documented by: [id number] Discharge Plan Visit Data Chief Complaint: Chest Pain ED Provider: Skip Barger Discharge Problem: Substernal chest pain Forms Stand Alone Forms: My [facility] [place] [employer] Prescriptions Prescriptions: No Action atorvastatin 40 mg Tablet 40 mg PO QAM RF: 0 aripiprazole [Abilify] 10 mg Tablet 10 mg PO HS RF: 0 topiramate [Topamax] 100 mg tablet 100 mg PO BID RF: 0
--- NOTE | 2020-02-13 11:45 | XRay Report ---
XR chest 1V portable CLINICAL HISTORY: Chest Pain COMPARISON STUDY: Chest CT May 19, 2019. Chest radiograph July 09, 2019. FINDINGS: Mild elevation the right hemidiaphragm is unchanged. Cardiomegaly is unchanged. There is no pneumothorax or pleural effusion. There is no consolidation to suggest pneumonia. The appearance of the chest is unchanged. IMPRESSION: No change in appearance of the chest. No acute findings. Cardiomegaly. ACT 112: Negative or not required by law. Electronically signed by: Magno Jordan M.D. 02/13/2020 11:44 AM
[2020-02-13 11:56] LABS: Basophils # (auto) 0.02 K/uL (0-0.2); Basophils % (auto) 0.3 %; Eosinophils # (auto) 0.09 K/uL (0-0.5); Eosinophils % (auto) 1.4 %; Hematocrit (blood only) 43.9 % (42-52); Hemoglobin 13.8 g/dL (14.0-18.0); Immature Granulocytes # (auto) 0.04 K/uL (0.00-0.02); Immature Granulocytes % (auto) 0.6 %; Lymphocytes # (auto) 0.94 K/uL (1.2-3.4); Lymphocytes % (auto) 15.1 %; Mean Corpuscular Hemoglobin 29.2 pg (25-34); Mean Corpuscular Hgb Conc 31.4 g/dL (32-36); Mean Platelet Volume 10.9 fL (7.4-10.4); Monocytes # (auto) 0.45 K/uL (0.11-0.59); Monocytes % (auto) 7.2 %; Neutrophils # (auto) 4.67 K/uL (1.4-6.5); Neutrophils % (auto) 75.4 %; Platelet Count 185 K/uL (130-400); RDW Coefficient of Variation 13.8 % (11.5-14.5); RDW Standard Deviation 46.5 fL (36.4-46.3); Red Blood Count 4.72 M/uL (4.7-6.1); White Blood Count 6.21 K/uL (4.8-10.8)
[2020-02-13 12:03] LABS: D Dimer 340 ug/L FEU (0-500); Partial Thromboplastin Time 27.5 Seconds (21.0-31.0); Prothrombin Time 10.3 Seconds (9.0-12.0)
[2020-02-13 12:21] LABS: Alanine Aminotransferase 44 U/L (12-78); Albumin Level 3.6 gm/dl (3.4-5.0); Alkaline Phosphatase 103 U/L (45-117); Aspartate Aminotransferase 26 U/L (15-37); BUN Creatinine Ratio 20.8 (10-20); Bilirubin,Total 0.5 mg/dl (0.2-1); Blood Urea Nitrogen 17 mg/dl (7-18); Calcium 8.6 mg/dl (8.5-10.1); Carbon Dioxide 21 mmol/L (21-32); Chloride 112 mmol/L (98-107); Creatinine Clr Calc Pharmacy 171.5 ml/min; Est GFR (African American) 120.3; Est GFR (Non-African American) 103.8; Globulin 3.6 gm/dl (2.5-4.0); Glucose 119 mg/dl (70-99); Lipase 105 U/L (73-393); Potassium 4.1 mmol/L (3.5-5.1); Sodium 141 mmol/L (136-145); Total Protein 7.2 gm/dl (6.4-8.2); Troponin I < 0.015 ng/ml (0-0.045)
[2020-02-13] MEDS ORDERED: NITROGLYCERIN SL 0.4 MG/TAB TAB SL STA (12:40)
[2020-02-13] MEDS ORDERED: SODIUM CHLORIDE 0.9% 1000ML 500 ML IV ONE (12:40)
[2020-02-13] MEDS ORDERED: SODIUM CHLORIDE 0.9% 1000ML 1,000 ML IV STA (12:40)
--- NOTE | 2020-02-13 14:42 | History & Physical Report ---
Date of Service February 13, 2020 Assessment & Plan (1) Chest pain: Pt is 49 y/o M with PMH ANGEL, dyslipidemia, bipolar disorder, migraine, obesity presented to ER with complaint of non-radiating midsternal chest pain with SOB this morning awoke pt from sleep. Given 4 baby aspirin in route and upon ER arrival had resolution of CP & SOB. During ER course patient had recurrent nonradiating midsternal chest pain with shortness of breath and was given nitro SL x 1 with relief with EKG without acute ST changes. Patient denies any associated nausea, vomiting, diaphoresis, dizziness, syncope, palpitations H/O Stress echo: No inducible ischemia, hypertensive BP response to exercise, EF: 55-60%, grade 1 diastolic dysfunction in 02/2019 In ER pt afebrile, P: 73, R: 19, BP: 133/72, 96% on RA. Initial troponin negative. D-dimer negative. EKG sinus rhythm without acute changes from 07/2019 CHEST PAIN R/O ACS. Risk factors: hyperlipidemia, obesity -Monitor Vitals -Repeat EKG in am -Will trend troponin -Echo -lipid panel in am, continue statin -daily aspirin -Nitro prn CP and repeat EKG for CP -NPO midnight -Cardiology consult (2) Dyslipidemia: -Continue atorvastatin (3) ANGEL (obstructive sleep apnea): -Continue home Bipap with 2L oxygen (4) Bipolar disorder: Stable -Continue Abilify (5) Migraine: -Continue Topamax (6) Obesity: Morbid Obesity -Lifestyle modifications recommended Admit observation Follows with Dr Mar for routine care Pt was seen and care coordinated with Dr Clements. See addendum History of Present Illness Chief Complaint: CP Primary Care Provider: Riley Mar MD Pt is 49 y/o M with PMH ANGEL, dyslipidemia, bipolar disorder, migraine, obesity presented to ER with complaint of chest pain. Patient states this morning woke up around 730 with midsternal chest pain with shortness of breath. Patient states symptoms lasted approximately 2.5 hours and called EMS. He reports he was given 4 baby aspirin in route and upon ER arrival had resolution of chest pain or shortness of breath. During ER course patient had recurrent nonradiating midsternal chest pain with shortness of breath and was given nitro SL x 1 with relief with EKG without acute ST changes. Patient denies any associated nausea, vomiting, diaphoresis, dizziness, syncope, palpitations with these episodes. Denies h/o CP in past. Does report h/o syncope in 2019 and and negative stress test at that time. Pt reports has some edema to bilateral ankles at end of work day that resolves with elevation. Denies any increased edema. Denies fever/chills, N/V/D/C, CARRION, vision changes, neck pain, orthopnea, cough, sore throat, choking, otalgia, rhinorrhea, abdominal pain, paresthesias, weakness, extremity weakness, rashes, urinary symptoms. 02/28/2019: Stress echo: No inducible ischemia, hypertensive BP response to exercise, EF: 55-60%, grade 1 diastolic dysfunction Allergies Allergy/AdvReac Type Severity Reaction Status Date / Time Penicillins Allergy Severe Rash Verified 02/13/20 12:18 latex Allergy Intermediate Rash Verified 02/13/20 12:18 Home Medications Home Medications Medication Instructions Recorded Confirmed Type aripiprazole [Abilify] 10 mg PO HS 04/02/18 02/13/20 History atorvastatin 40 mg PO QAM 04/02/18 02/13/20 History topiramate [Topamax] 100 mg PO BID 08/21/18 02/13/20 History Past Med/Surg History Medical History Bipolar disorder Depression Hyperlipidemia Morbid obesity Sleep apnea Bipap with 2L O2 Surgical History H/O shoulder surgery right shoulder scope History of adenoidectomy History of herniorrhaphy UMBILICAL History of surgery CYST REMOVED FROM LEFT INDEX FINGER History of tonsillectomy Family History Mother Stroke Cancer uterine Father Cancer Brain and lung Grandfather (Maternal) Heart disease Social History (Updated 02/13/20 @ 14:40 by Lissette Cope PA-C) Smoking Status: Never smoker Second Hand Exposure: No; Do You Dip or Chew Tobacco: No; Hx Alcohol Use: Yes Alcohol type: beer Alcohol Intake Frequency Comment: 6-12 beers on weekends Hx Substance Use: No Preferred Language: Faroese Communication Ability: Effective 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 Beliefs That Will Affect Care: None marital status: Current Living Situation: Spouse current occupational status: employed 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 Other Information That Helps Us Care for You: No Feels Safe at Home: Yes Safety Concerns: Feels Safe At This Time caffeine: Yes Review of Systems Review of Systems: All systems reviewed & are unremarkable except as noted in HPI & below Physical Exam Physical Exam: General: no distress, obese Head: normocephalic, atraumatic Eyes: PERRL, EOM's intact, conjunctiva non-injected, anicteric ENT: normal inspection external ears, nose, mucous membranes moist Neck: supple, trachea midline Lungs: clear, no respiratory distress, no wheezing/rhonchi/rales CV: RRR, no murmur, trace pretibial edema; chest wall without rashes and is non- tender to palpation Abd: normal BS, protuberant, soft, non-tender Ext: no cyanosis, no calf tenderness Neuro: A&O x 3, no focal deficits noted, normal affect Skin: warm, dry Results & Data Results & Data ([facility]) Vital Signs (Past 12 Hours) Vital Signs Temp Pulse Resp BP Pulse Ox 02/13/20 13:16 73 18 142/77 H 98 02/13/20 13:01 79 18 117/75 97 02/13/20 12:45 68 22 124/77 98 02/13/20 12:40 72 21 99 02/13/20 12:39 74 16 125/77 97 02/13/20 12:30 73 18 98 02/13/20 12:16 73 24 97 02/13/20 12:15 74 24 118/82 97 02/13/20 12:01 69 18 129/69 97 02/13/20 12:00 75 20 95 02/13/20 11:46 84 25 H 115/85 02/13/20 11:45 73 24 02/13/20 11:31 70 18 02/13/20 11:30 70 24 127/74 02/13/20 11:16 72 24 96 02/13/20 11:15 70 21 117/68 97 02/13/20 11:04 72 23 97 02/13/20 11:03 36.7 C 73 19 133/72 96 02/13/20 11:02 76 17 133/72 97 Laboratory Results Short CBC 02/13/20 Range/Units 11:34 WBC 6.21 (4.8-10.8) K/uL Hgb 13.8 L (14.0-18.0) g/dL Hct 43.9 (42-52) % Plt Count 185 (130-400) K/uL BMP 02/13/20 11:34 Sodium 141 Potassium 4.1 Chloride 112 H Carbon Dioxide 21 BUN 17 Creatinine 0.82 Glucose 119 H Calcium 8.6 Cardiac Enzymes 02/13/20 Range/Units 11:34 Troponin I < 0.015 (0-0.045) ng/ml Liver Function 02/13/20 Range/Units 11:34 Total Bilirubin 0.5 (0.2-1) mg/dl AST 26 (15-37) U/L ALT 44 (12-78) U/L Alkaline Phosphatase 103 (45-117) U/L Albumin 3.6 (3.4-5.0) gm/dl Diagnostic Findings CXR: IMPRESSION: No change in appearance of the chest. No acute findings. Cardiomegaly. ECG Rate (beats per minute): 67 Rhythm: sinus rhythm Comparison ECG Date: from (07/09/2019) Change: no significant change Supervising Physician Co-Signing Physician Notes Pt was seen and examined. Agreed with Lissette BUTCHER exam, assessment and plan. 49 y/o M with PMH ANGEL, dyslipidemia, bipolar disorder, migraine, obesity presented to ER with complaint of chest pain. Pt said that chest pain woke him up around this morning. He described the pain as stabbing, non radiating associated with SOB. He said that pain relief after receiving nitro. Currently denies any chest pain, palpitation, dizziness and SOB. EKG on admission showed no acute ischemic changes. Troponin on admission negative. Will trend troponin and check ECHO in am. Cardiology consult. Will make NPO after midnight for possible stress test. Continue aspirin and statin. Will continue monitor closely in telemonitor. MD Tyree
[2020-02-13] MEDS ORDERED: NITROGLYCERIN SL 0.4 MG/TAB TAB SL PRN (15:10)
[2020-02-13] MEDS ORDERED: ACETAMINOPHEN 325 MG TAB PO PRN (15:10)
[2020-02-13] MEDS ORDERED: PERFLUTREN LIPID MICROSPHERE (DEFINITY) IV ONE (15:59)
--- NOTE | 2020-02-13 18:09 | Cardiology Consultation ---
Date of Consultation February 13, 2020 Assessment & Plan (1) Chest pain: Present EKG within normal limits. Troponin is undetectable x2 measurements. Continue to trend troponin. N.p.o. after midnight, for further ischemic work-up. Agree with medications including aspirin and atorvastatin. History of Present Illness Attending Physician: Jessica Clements MD History of Present Illness Mr Lujan is a 49 year old man seen in cardiology consultation per the request of Dr Sol for the evaluation of chest discomfort. He has a history of obesity, obstructive sleep apnea, dyslipidemia and bipolar disorder. 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 This morning he awoke from sleep with shortness of breath and chest discomfort. It persisted. He felt like it improved on the ambulance with aspirin. Recurred again on arrival to the emergency room, and he states it subsequently resolved after treatment with sublingual nitroglycerin. He currently has a headache, no other complaint. Allergies Allergy/AdvReac Type Severity Reaction Status Date / Time Penicillins Allergy Severe Rash Verified 02/13/20 12:18 latex Allergy Intermediate Rash Verified 02/13/20 12:18 Home Medications Home Medications Medication Instructions Recorded Confirmed Type aripiprazole [Abilify] 10 mg PO HS 04/02/18 02/13/20 History atorvastatin 40 mg PO QAM 04/02/18 02/13/20 History topiramate [Topamax] 100 mg PO BID 08/21/18 02/13/20 History Patient History Medical History Bipolar disorder Depression Hyperlipidemia Morbid obesity Sleep apnea Bipap with 2L O2 Surgical History H/O shoulder surgery right shoulder scope History of adenoidectomy History of herniorrhaphy UMBILICAL History of surgery CYST REMOVED FROM LEFT INDEX FINGER History of tonsillectomy Family History Mother Stroke Cancer uterine Father Cancer Brain and lung Grandfather (Maternal) Heart disease Social History (Updated 02/13/20 @ 14:40 by Lissette Cope PA-C) Smoking Status: Never smoker Second Hand Exposure: No; Do You Dip or Chew Tobacco: No; Hx Alcohol Use: Yes Alcohol type: beer Alcohol Intake Frequency Comment: 6-12 beers on weekends Hx Substance Use: No Preferred Language: Tristanian Communication Ability: Effective Tool And Die Designer Required: No Beliefs That Will Affect Care: None marital status: Current Living Situation: Spouse current occupational status: employed 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 Other Information That Helps Us Care for You: No Feels Safe at Home: Yes Safety Concerns: Feels Safe At This Time caffeine: Yes Review of Systems Review of Systems: All systems reviewed & are unremarkable except as noted in HPI & below Physical Exam Physical Exam: Temp Pulse Resp BP Pulse Ox 36.7 C 68 16 145/80 H 97 02/13/20 15:14 02/13/20 15:38 02/13/20 15:14 02/13/20 15:14 02/13/20 15:14 Constitutional: WD/WN, vitals as above Respiratory: normal respiratory effort, lungs clear to auscultation Cardiovascular: RRR, no murmur, no edema Gastrointestinal (Abdomen): normal bowel sounds, soft, nontender, no hepatosplenomegaly Neurologic: PERRL, EOMI, accommodation nl, no face palsy, no dysarthria Results & Data ([facility]) Vital Signs (Past 12 Hours) Vital Signs Temp Pulse Pulse Resp BP BP Pulse Ox 02/13/20 15:38 68 02/13/20 15:14 36.7 C 69 16 145/80 H 97 02/13/20 14:31 82 24 97 02/13/20 14:30 75 29 H 127/73 97 02/13/20 14:22 71 28 H 116/71 98 02/13/20 14:18 70 23 02/13/20 14:01 71 14 138/80 96 02/13/20 14:00 72 22 98 02/13/20 13:46 68 19 123/72 97 02/13/20 13:45 69 17 87 L 02/13/20 13:31 71 15 149/85 H 96 02/13/20 13:30 69 26 H 97 02/13/20 13:17 72 29 H 98 02/13/20 13:16 73 18 142/77 H 98 02/13/20 13:01 79 18 117/75 97 02/13/20 12:45 68 22 124/77 98 02/13/20 12:40 72 21 99 09/10/20 12:39 74 16 125/77 97 02/13/20 12:30 73 18 98 02/13/20 12:16 73 24 97 02/13/20 12:15 74 24 118/82 97 02/13/20 12:01 69 18 129/69 97 02/13/20 12:00 75 20 95 02/13/20 11:46 84 25 H 115/85 02/13/20 11:45 73 24 02/13/20 11:31 70 18 02/13/20 11:30 70 24 127/74 02/13/20 11:16 72 24 96 02/13/20 11:15 70 21 117/68 97 02/13/20 11:04 72 23 97 02/13/20 11:03 36.7 C 73 19 133/72 96 02/13/20 11:02 76 17 133/72 97 Laboratory Results Cardiac Enzymes 02/13/20 02/13/20 Range/Units 11:34 17:05 AST 26 (15-37) U/L Troponin I < 0.015 < 0.015 (0-0.045) ng/ml Coagulation 02/13/20 Range/Units 11:34 PT 10.3 (9.0-12.0) Seconds APTT 27.5 (21.0-31.0) Seconds CBC 02/13/20 Range/Units 11:34 WBC 6.21 (4.8-10.8) K/uL RBC 4.72 (4.7-6.1) M/uL Hgb 13.8 L (14.0-18.0) g/dL Hct 43.9 (42-52) % Plt Count 185 (130-400) K/uL Neut # (Auto) 4.67 (1.4-6.5) K/uL Lymph # (Auto) 0.94 L (1.2-3.4) K/uL [place] # (Auto) 0.45 (0.11-0.59) K/uL Eos # (Auto) 0.09 (0-0.5) K/uL Baso # (Auto) 0.02 (0-0.2) K/uL Comprehensive Metabolic Panel 02/13/20 Range/Units 11:34 Sodium 141 (136-145) mmol/L Potassium 4.1 (3.5-5.1) mmol/L Chloride 112 H (98-107) mmol/L Carbon Dioxide 21 (21-32) mmol/L BUN 17 (7-18) mg/dl Creatinine 0.82 (0.6-1.4) mg/dl Glucose 119 H (70-99) mg/dl Calcium 8.6 (8.5-10.1) mg/dl AST 26 (15-37) U/L ALT 44 (12-78) U/L Alkaline Phosphatase 103 (45-117) U/L Total Protein 7.2 (6.4-8.2) gm/dl Albumin 3.6 (3.4-5.0) gm/dl Intake and Output 02/13/20 02/13/20 02/13/20 06:59 14:59 22:59 Intake Total 500 / 500 Balance 500 / 500 Intake: IV 500 / 500 Nss 1000ML 500 ml @ 999 mls/hr 500 / 500 IV .Q31M ONE Rx#:[id number] Other: Weight 168.7 kg 168.7 kg Patient Weight 02/14/20 06:59 Weight 168.7 kg Diagnostic Findings EKG performed today at 1103 revealed normal sinus rhythm at 67 bpm, normal EKG
--- NOTE | 2020-02-13 19:03 | Electrocardiogram Report ---
Test Reason : Blood Pressure : / mmHG Vent. Rate : 067 BPM Atrial Rate : 067 BPM P-R Int : 130 ms QRS Dur : 104 ms QT Int : 392 ms P-R-T Axes : 011 006 015 degrees QTc Int : 414 ms Normal sinus rhythm Normal ECG When compared with ECG of 09-JUL-2019 08:46, No significant change was found Confirmed by Adebayo Klein ([id number]) on 02/13/2020 7:03:00 PM Referred By: Confirmed By:Ashu Klein
[2020-02-13] MEDS ORDERED: ARIPiprazole 10 MG TAB PO SCH (21:00)
[2020-02-13] MEDS: TOPIRAMATE 100 MG TAB PO SCH (21:25)
[2020-02-14 07:26] LABS: Hematocrit (blood only) 42.6 % (42-52); Hemoglobin 13.8 g/dL (14.0-18.0); Mean Corpuscular Hemoglobin 30.1 pg (25-34); Mean Corpuscular Hgb Conc 32.4 g/dL (32-36); Mean Platelet Volume 10.7 fL (7.4-10.4); Platelet Count 168 K/uL (130-400); RDW Coefficient of Variation 13.7 % (11.5-14.5); RDW Standard Deviation 46.6 fL (36.4-46.3); Red Blood Count 4.58 M/uL (4.7-6.1); White Blood Count 5.55 K/uL (4.8-10.8)
[2020-02-14 07:51] LABS: BUN Creatinine Ratio 18.8 (10-20); Calcium 8.8 mg/dl (8.5-10.1); Creatinine Clr Calc Pharmacy 146.1 ml/min; Est GFR (African American) 109.9; Est GFR (Non-African American) 94.8
[2020-02-14] MEDS: TOPIRAMATE 100 MG TAB PO SCH (08:08)
[2020-02-14] MEDS ORDERED: ASPIRIN 81 MG ECTAB PO SCH (09:00)
[2020-02-14] MEDS ORDERED: ATORVASTATIN 40 MG TAB PO SCH (09:00)
[2020-02-14 09:16] LABS: Estimated Average Glucose 128 mg/dl; Hemoglobin A1C 6.1 % (4.5-5.6)
[2020-02-14] MEDS ORDERED: METOPROLOL TARTRATE 1 MG/ML VIAL IV ONE (09:42)
[2020-02-14] MEDS ORDERED: ATROPINE SULFATE 0.1 MG/ML 10ML SYR IV ONE (09:42)
[2020-02-14] MEDS ORDERED: DOBUTamine HCL 12.5 MG/ML 20 ML VIAL IV ONE (09:42)
[2020-02-14] MEDS ORDERED: ASPIRIN 81 MG CHEW PO ONE (11:45)
[2020-02-14] MEDS ORDERED: EZETIMIBE 10 MG TABLET PO SCH (11:45)
--- NOTE | 2020-02-14 11:49 | Cardiology Progress Note ---
Date of Service February 14, 2020 Assessment & Plan (1) Chest pain: Serial troponin levels within normal limits. Serial resting EKG tracings within normal limits. Dobutamine stress echocardiogram with abnormal EKG response suggestive of ischemia with chest pain at the same time. Stress images were normal. Although patient experienced "tremor" side effect of dobutamine, the chest tightness was a separate complaint. Has risk factors of age, male, obesity, dyslipidemia. Recommend proceeding with diagnostic cardiac catheterization. Patient agreeable. Procedure scheduled with Dr Pineda of interventional cardiology. (2) Dyslipidemia: LDL 86 on atorvastatin 40 mg . Will add ezetimibe rather than increase the atorvastatin in an effort to reduced risk of myalgias. Admission and Anticipated Discharge Date Admission Date: February 13, 2020 Subjective Patient seen prior to during and now post dobutamine stress echo cardiogram. He is now back in room 220. Spouse as bedside. He is feeling well. Review of Systems Review of Systems: All systems reviewed & are unremarkable except as noted in HPI & below Physical Exam Physical Exam: Temp Pulse Resp BP Pulse Ox 36.5 C 74 18 114/71 96 02/14/20 11:12 02/14/20 11:12 02/14/20 11:12 02/14/20 11:12 02/14/20 11:12 Constitutional: WD/WN, vitals as above Respiratory: normal respiratory effort, lungs clear to auscultation Cardiovascular: RRR, no murmur, no edema Gastrointestinal (Abdomen): normal bowel sounds, soft, nontender, no hepatosplenomegaly Neurologic: PERRL, EOMI, accommodation nl, no face palsy, no dysarthria Results & Data ([facility]) Vital Signs (Past 12 Hours) Vital Signs Temp Pulse Pulse Resp BP Pulse Ox 02/14/20 11:12 36.5 C 74 18 114/71 96 02/14/20 07:15 36.7 C 70 20 117/66 96 02/14/20 07:13 76 02/14/20 03:41 36.5 C 64 18 122/64 95 02/14/20 00:16 36.4 C L 62 18 117/65 94 Laboratory Results Cardiac Enzymes 02/13/20 02/13/20 02/13/20 Range/Units 11:34 17:05 22:49 AST 26 (15-37) U/L Troponin I < 0.015 < 0.015 < 0.015 (0-0.045) ng/ml Coagulation 02/13/20 Range/Units 11:34 PT 10.3 (9.0-12.0) Seconds APTT 27.5 (21.0-31.0) Seconds Lipids 02/14/20 Range/Units 07:02 Triglycerides 211 H (0-150) mg/dl Cholesterol 167 (0-200) mg/dl HDL Cholesterol 39 mg/dl Cholesterol/HDL Ratio 4 CBC 02/13/20 02/14/20 Range/Units 11:34 07:02 WBC 6.21 5.55 (4.8-10.8) K/uL RBC 4.72 4.58 L (4.7-6.1) M/uL Hgb 13.8 L 13.8 L (14.0-18.0) g/dL Hct 43.9 42.6 (42-52) % Plt Count 185 168 (130-400) K/uL Neut # (Auto) 4.67 (1.4-6.5) K/uL Lymph # (Auto) 0.94 L (1.2-3.4) K/uL [place] # (Auto) 0.45 (0.11-0.59) K/uL Eos # (Auto) 0.09 (0-0.5) K/uL Baso # (Auto) 0.02 (0-0.2) K/uL Comprehensive Metabolic Panel 02/13/20 02/14/20 Range/Units 11:34 07:02 Sodium 141 141 (136-145) mmol/L Potassium 4.1 4.0 (3.5-5.1) mmol/L Chloride 112 H 109 H (98-107) mmol/L Carbon Dioxide 21 25 (21-32) mmol/L BUN 17 18 (7-18) mg/dl Creatinine 0.82 0.94 (0.6-1.4) mg/dl Glucose 119 H 131 H (70-99) mg/dl Calcium 8.6 8.8 (8.5-10.1) mg/dl AST 26 (15-37) U/L ALT 44 (12-78) U/L Alkaline Phosphatase 103 (45-117) U/L Total Protein 7.2 (6.4-8.2) gm/dl Albumin 3.6 (3.4-5.0) gm/dl Intake and Output 02/13/20 02/14/20 02/14/20 22:59 06:59 14:59 Intake Total 1360 / 1860 0 / 1860 Balance 1360 / 1860 0 / 1860 Intake: IV 1000 / 1500 Nss 1000ML 1,000 ml @ 125 mls/ 1000 / 1000 hr IV .Q8H STA Rx#:[id number] Oral 360 / 360 0 / 360 Other: Weight 168.7 kg 162.2 kg
[2020-02-14] MEDS ORDERED: NiCARDipine HCL INJ 2.5 MG/ML 10 ML AMP ONE (11:56)
[2020-02-14] MEDS ORDERED: HEPARIN (PORCINE) 1000 UNIT/ML 10 ML (CATH LAB USE ONLY) ONE (11:56)
[2020-02-14] MEDS ORDERED: fentaNYL citrate 100 MCG/2 ML VIAL ONE (11:56)
[2020-02-14] MEDS ORDERED: NITROGLYCERIN/D5W 100MCG/ML 20ML SYR ONE (11:57)
[2020-02-14] MEDS ORDERED: MIDAZOLAM HCL 1 MG/ML 2ML VIAL ONE (11:57)
--- NOTE | 2020-02-14 12:37 | Electrocardiogram Report ---
Test Reason : Blood Pressure : / mmHG Vent. Rate : 071 BPM Atrial Rate : 071 BPM P-R Int : 140 ms QRS Dur : 080 ms QT Int : 392 ms P-R-T Axes : 040 004 016 degrees QTc Int : 425 ms Poor data quality, interpretation may be adversely affected Normal sinus rhythm When compared with ECG of 13-FEB-2020 11:03, No significant change was found Confirmed by Adebayo Klein ([id number]) on 02/14/2020 12:36:45 PM Referred By: REFERRED SELF Confirmed By:Ashu Klein
--- NOTE | 2020-02-14 12:44 | Electrocardiogram Report ---
Test Reason : Blood Pressure : / mmHG Vent. Rate : 068 BPM Atrial Rate : 068 BPM P-R Int : 148 ms QRS Dur : 100 ms QT Int : 396 ms P-R-T Axes : 039 024 039 degrees QTc Int : 421 ms Normal sinus rhythm Incomplete right bundle branch block Borderline ECG When compared with ECG of 13-FEB-2020 12:34, (unconfirmed) Incomplete right bundle branch block is now Present Confirmed by Adebayo Klein ([id number]) on 02/14/2020 12:44:16 PM Referred By: REFERRED SELF Confirmed By:Ashu Klein
--- NOTE | 2020-02-14 13:41 | Hospitalist Progress Note ---
Date of Service February 14, 2020 Assessment & Plan (1) Chest pain: Pt is 49 y/o M with PMH ANGEL, dyslipidemia, bipolar disorder, migraine, obesity presented to ER with complaint of non-radiating midsternal chest pain with SOB this morning awoke pt from sleep. Given 4 baby aspirin in route and upon ER arrival had resolution of CP & SOB. During ER course patient had recurrent nonradiating midsternal chest pain with shortness of breath and was given nitro SL x 1 with relief with EKG without acute ST changes. Patient denies any associated nausea, vomiting, diaphoresis, dizziness, syncope, palpitations H/O Stress echo: No inducible ischemia, hypertensive BP response to exercise, EF: 55-60%, grade 1 diastolic dysfunction in 02/2019 In ER pt afebrile, P: 73, R: 19, BP: 133/72, 96% on RA. Initial troponin negative. D-dimer negative. EKG sinus rhythm without acute changes from 07/2019 CHEST PAIN R/O ACS. Risk factors: hyperlipidemia, obesity -Monitor Vitals -Repeat EKG in am -Will trend troponin -Echo -lipid panel in am, continue statin -daily aspirin -Nitro prn CP and repeat EKG for CP -NPO midnight -Cardiology consult (2) Dyslipidemia: -Continue atorvastatin (3) ANGEL (obstructive sleep apnea): -Continue home Bipap with 2L oxygen (4) Bipolar disorder: Stable -Continue Abilify (5) Migraine: -Continue Topamax (6) Obesity: Morbid Obesity -Lifestyle modifications recommended Admit observation Follows with Dr Mar for routine care Pt was seen and care coordinated with Dr Clements. See addendum Admission and Anticipated Discharge Date Admission Date: February 13, 2020 Results & Data Results & Data ([facility]) Vital Signs (Past 12 Hours) Vital Signs Temp Pulse Pulse Resp BP Pulse Ox 02/14/20 11:12 36.5 C 74 18 114/71 96 02/14/20 07:15 36.7 C 70 20 117/66 96 02/14/20 07:13 76 02/14/20 03:41 36.5 C 64 18 122/64 95 Laboratory Results Short CBC 02/14/20 Range/Units 07:02 WBC 5.55 (4.8-10.8) K/uL Hgb 13.8 L (14.0-18.0) g/dL Hct 42.6 (42-52) % Plt Count 168 (130-400) K/uL BMP 02/14/20 07:02 Sodium 141 Potassium 4.0 Chloride 109 H Carbon Dioxide 25 BUN 18 Creatinine 0.94 Glucose 131 H Calcium 8.8 Cardiac Enzymes 02/13/20 02/13/20 Range/Units 17:05 22:49 Troponin I < 0.015 < 0.015 (0-0.045) ng/ml Diagnostic Findings XR chest 1V portable CLINICAL HISTORY: Chest Pain COMPARISON STUDY: Chest CT May 19, 2019. Chest radiograph July 09, 2019. FINDINGS: Mild elevation the right hemidiaphragm is unchanged. Cardiomegaly is unchanged. There is no pneumothorax or pleural effusion. There is no consolidation to suggest pneumonia. The appearance of the chest is unchanged. IMPRESSION: No change in appearance of the chest. No acute findings. Cardiomegaly. Medications Administered Current Inpatient Medications Acetaminophen (Acetaminophen 325 Mg Tab) 650 mg PO Q4H PRN PRN Reason: Pain or Fever Stop: 03/14/20 15:09 Aripiprazole (Aripiprazole 10 Mg Tab) 10 mg PO HS [facility] Stop: 03/14/20 20:59 Last Admin: 02/13/20 21:25 Dose: 10 mg Documented by: Aspirin (Aspirin 81 Mg Ectab) 81 mg PO DAILY [facility] Stop: 03/15/20 08:59 Last Admin: 02/14/20 08:08 Dose: 81 mg Documented by: Atorvastatin Calcium (At[facility]atin 40 Mg Tab) [facility] Stop: 03/15/20 08:59 Last Admin: 02/14/20 08:08 Dose: 40 mg Documented by: Ezetimibe (Ezetimibe 10 Mg Tablet) 10 mg PO QAM [facility] Stop: 03/15/20 11:44 Last Admin: 02/14/20 13:00 Dose: 10 mg Documented by: Nitroglycerin (Nitroglycerin Sl 0.4 Mg/Tab Tab) 0.4 mg SL UD PRN PRN Reason: Chest Pain Stop: 03/14/20 15:09 Topiramate (Topiramate 100 Mg Tab) 100 mg PO BID [facility] Stop: 03/14/20 20:59 Last Admin: 02/14/20 08:08 Dose: 100 mg Documented by:
--- NOTE | 2020-02-14 15:13 | Post Anesthesia Assessment ---
Date of Service February 14, 2020 Post Sedation Assessment Vital Signs Temp Pulse Pulse Pulse Resp BP Pulse Ox 02/14/20 15:10 64 16 129/79 97 02/14/20 14:55 62 16 133/74 96 02/14/20 11:12 97.7 F 74 18 114/71 96 02/14/20 07:15 98.1 F 70 20 117/66 96 02/14/20 07:13 76 02/14/20 03:41 97.7 F 64 18 122/64 95 02/14/20 00:16 97.5 F L 62 18 117/65 94 02/13/20 21:00 62 02/13/20 20:00 97.9 F 65 18 131/56 L 96 02/13/20 15:38 68 02/13/20 15:14 98.1 F 69 16 145/80 H 97 Recovery Score Activity: Moves 4 extremities Respiration: Deep Breath/Cough Circulation: +/-20% PreAnes Value Consciousness: Fully Awake Oxygen Saturation: > 92% On Room Air Post Anesthesia Score: 10 Discharge Sedation Level of Care: Fast Track Phase II Post Sedation Plan On clinical assessment, the patient appears to have tolerated the sedation without complications. Patient is recovering as anticipated. Patient will continue to be monitored by nursing and may be discharged when sedation discharge criteria are met per below protocol. Upon Completions of procedure up to 15 minutes continue every 5 minute vital signs and the P.A.R. score; then discharge to a Phase I or Fast Track to Phase II per the following guidelines: * Discharge Patient to appropriate Phase II area if PAR is 8 or greater or return to pre- procedure baseline. The post - procedure orders will be as directed. * If PAR score is less than 8 or not return to pre-procedure baseline then patient will follow Phase I monitoring till PAR is reached for Phase II. The Phase I may be done in procedure room or may call to secure a Phase I area. * If naloxone or flumazenil are used for reversal, hold in Phase I for continued monitoring from when last reversal dose was given for a minimum of 60 minutes or longer pending the nurse and/or physician discretion of patient condition before discharge to Phase II. Please call the Sedation Physician to re-evaluate and complete post-note for discharge to Phase II area. Do NOT discharge from procedure sedation or Phase 1 until post- sedation evaluation note is complete by procedure /sedation MD Sedation Discharge Instructions to be given to the patient at discharge to home.
--- NOTE | 2020-02-14 15:13 | Pre Anesthesia Assessment ---
Date of Service February 14, 2020 Pre Sedation Assessment Vital Signs Temp Pulse Pulse Pulse Resp BP Pulse Ox 02/14/20 15:10 64 16 129/79 97 02/14/20 14:55 62 16 133/74 96 02/14/20 11:12 97.7 F 74 18 114/71 96 02/14/20 07:15 98.1 F 70 20 117/66 96 02/14/20 07:13 76 02/14/20 03:41 97.7 F 64 18 122/64 95 02/14/20 00:16 97.5 F L 62 18 117/65 94 02/13/20 21:00 62 02/13/20 20:00 97.9 F 65 18 131/56 L 96 02/13/20 15:38 68 02/13/20 15:14 98.1 F 69 16 145/80 H 97 Cardiovascular RRR, no murmur, no edema Respiratory normal respiratory effort, lungs clear to auscultation Pre-Sedation Airway Assessment Smoking Status: Never smoker Hx Sleep Apnea: No Hx Difficult Intubation: No Short, Thick Neck: No Thyromental Distance: < 3.5 Finger Breadths Oral Cavity: + WNL Mallampati Class: III ASA: ASA3 Procedure Planning Contraindications for Sedation: none Current Medications Reviewed: Yes Notes The planned sedation has been discussed with the patient. Informed Consent was obtained. I have identified the patient, determined the appropriateness of sedation and have assessed the patient immediately prior to the procedure. All medicine(s) and interventions are by my order.
--- NOTE | 2020-02-14 15:18 | Cardiac Catheterization ---
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 Cardiac Status Clinical evaluation leading to the procedure CAD Presenation: Positive Stress Test Anginal Classification: CCS III Heart Failure: No Cardiogenic Shock within 24 Hours: No Cardiac Arrest within 24 Hours: No Imaging Studies Past 6 Months: Yes Stress Studies Past 6 Months: Yes Stress Echocardiogram: Yes - Positive and Risk/Extent of Ischemia (Low) Diagnostic Physicians Name: Adebayo Pineda MD Status: Elective Closure Device Percutaneous Entry Location: Radial Closure Device: Radial Band Recommendations: Medical Therapy and/or Counseling Intraprocedure Events Significant Disection: No Perforation: No Cardiac Cath Procedure Full Procedure Date February 14, 2020 Pre-Procedure Diagnosis Pre-Procedure Diagnosis: Positive Stress Test AUC Score AUC Score: 7 Post-Procedure Diagnosis Post-Procedure Diagnosis: Mild CAD and Elevated Intracardiac Pressures Procedure(s) Performed Procedure(s) Performed: Coronary Angiography and Left Heart Cath Lip Cutter Adebayo Pineda MD Agent Spa Desk(s) Smuck Estimated Blood Loss Estimated Blood Loss: 5 Medication(s) Medication(s): Fentanyl, Lidocaine 1%, Nicardipine, Nitroglycerin and Versed Summary of Findings Indication: Abnormal stress test Access: 6 Fr slender right radial artery Catheters: [place] Findings: LM -angiographically normal LAD -medium caliber vessel, tortuous, tapers prior to apex. No significant disease Circumflex -large caliber vessel, angiographically normal RCA -dominant, large caliber vessel, luminal regularities LVEDP -25 Arterial Closure: TR band Summary: 1. Minimal nonobstructive coronary artery disease 2. Elevated intracardiac filling pressure Recommendations: Continued ASCVD risk factor modification per Dr. Haji Hemodynamics Rest Ao:: 118/80/98 Final Ao: 110/68/86 LV: 121/25 Recommendations Recommendations: Medical Therapy and/or Counseling Specimens Specimens: None Radiation Exposure (mGy) 1132 Contrast (mls) 35 Fluids (cc crystalloids) Fluids (cc crystalloids): 51 Drains Drains: None Anesthesia Moderate Disposition PCU I attest to the content of the Intraoperative Record and any orders documented therein. Any exceptions are noted below. [facility] Card Cath Procedure Codes Cardiac Catheterization Procedure 1: Cardiovascular Cath Procedures: 65826 Coronaries and LHC (+/-LV) Moderate Sedation Procedure 1: Sedation/Anesthesia: 04889 Mod Sedation by the same physician;Init15 Min Child Age 5 & Up Procedure 2: Sedation/Anesthesia: 12761 Mod Sedation by the same physician; Ea [id number] Minutes PG Care Time/CCT Total # of Minutes Spent Total Time Spent with Patient: Total time spent is greater than 50% in coordination of care (as documented) at patient's floor/unit and/or counseling patient:
--- NOTE | 2020-02-14 15:24 | Communication Note ---
Date of Service: February 14, 2020 Patient with minimal nonobstructive coronary atherosclerosis. If patient completes post cardiac catheterization recovery without incident, anticipate discharge. Would recommend medications to include aspirin 81 mg daily, atorvastatin 40 mg daily, ezetimibe 10 mg daily.
[2020-02-14 15:40] VITALS: TEMP 98.4
--- NOTE | 2020-02-14 15:53 | Discharge Summary ---
Date of Service February 14, 2020 Admission HPI Per Admitting Provider Pt is 49 y/o M with PMH ANGEL, dyslipidemia, bipolar disorder, migraine, obesity presented to ER with complaint of chest pain. Patient states this morning woke up around 730 with midsternal chest pain with shortness of breath. Patient states symptoms lasted approximately 2.5 hours and called EMS. He reports he was given 4 baby aspirin in route and upon ER arrival had resolution of chest pain or shortness of breath. During ER course patient had recurrent nonradiating midsternal chest pain with shortness of breath and was given nitro SL x 1 with relief with EKG without acute ST changes. Patient denies any a ssociated nausea, vomiting, diaphoresis, dizziness, syncope, palpitations with these episodes. Denies h/o CP in past. Does report h/o syncope in 2019 and and negative stress test at that time. Pt reports has some edema to bilateral ankles at end of work day that resolves with elevation. Denies any increased edema. Denies fever/chills, N/V/D/C, CARRION, vision changes, neck pain, orthopnea, cough, sore throat, choking, otalgia, rhinorrhea, abdominal pain, paresthesias, weakness, extremity weakness, rashes, urinary symptoms. 02/28/2019: Stress echo: No inducible ischemia, hypertensive BP response to exercise, EF: 55-60%, grade 1 diastolic dysfunction Admission Exam Per Admitting Provider General: no distress, obese Head: normocephalic, atraumatic Eyes: PERRL, EOM's intact, conjunctiva non-injected, anicteric ENT: normal inspection external ears, nose, mucous membranes moist Neck: supple, trachea midline Lungs: clear, no respiratory distress, no wheezing/rhonchi/rales CV: RRR, no murmur, trace pretibial edema; chest wall without rashes and is non- tender to palpation Abd: normal BS, protuberant, soft, non-tender Ext: no cyanosis, no calf tenderness Neuro: A&O x 3, no focal deficits noted, normal affect Skin: warm, dry Principal Diagnosis chest pain Discharge Data Allergies Allergy/AdvReac Type Severity Reaction Status Date / Time Penicillins Allergy Severe Rash Verified 02/20/20 19:44 latex Allergy Intermediate Rash Verified 02/20/20 19:44 Consultations 02/13/20 13:26 ED Decision to Admit Stat 02/13/20 15:10 Consult Cardiology Routine Procedures Performed Operation Date: 02/14/20 12:00 Actual Procedures p Cath, Left with Cors and Vent - Jose Pineda MD s Cineradiography w/Routine Exam - Jose Pineda MD Ordered Studies 02/14/20 12:02 CL Cath Imgs for PACS use only Routine Hospital Course (1) Chest pain: 49-year-old man presented with chest pain upon awakening described as midsternal with shortness of breath. After 3 hours he called EMS and was given 4 baby aspirin in route and upon arrival to the ER had a resolution of chest pain. Chest pain and shortness of breath reoccurred and he was given sublingual nitro x1 with relief. EKG revealed no ST changes. He had no associated symptoms with chest pain. He was admitted to the hospitalist service and cardiology was consulted. Serial troponin enzymes were undetectable x2. An echocardiogram was performed the following morning revealing ejection fraction 55 to 60% grossly normal left ventricular wall motion and no significant valvular heart disease. See resting EKGs within normal limits. Dobutamine stress echocardiogram revealed an abnormal EKG response suggestive of ischemia with chest pain at the same time. Stress images were normal although patient experienced "tremor "side effect of dobutamine, the chest tightness was a separate complaint. As a result of his risk factors including age, male gender, obesity and dyslipidemia he was recommended to proceed with a diagnostic cardiac catheterization. This was scheduled same day with Dr. Pienda of interventional cardiology. Lipid panel revealed an LDL of 86 on atorvastatin 40 mg. Cardiology added ezetimibe rather than increase the atorvastatin in an effort to reduce risk of myalgias. Heart cath revealed minimal nonobstructive coronary artery disease and elevated intracardiac filling pressures. Recommendations included continue ASCVD risk factor modification. At time of discharge she was hemodynamically stable and afebrile and tolerating p.o. He was mentating ambulating at baseline and oxygenating well on room air he was discharged in stable condition with close primary care follow-up recommended. Total Time Total Time Spent Total Time Spent (In Minutes): 60 Total Time Includes: Examination of the Patient, Discharge Planning, Medication Reconciliation and Communication With Other Providers Discharge Plan Discharge Items Patient Disposition: Home - Self-Care Reason For Visit: CHEST PAIN Discharge Diagnosis: chest pain minimal nonobstructive CAD Condition on Discharge: Good Activity: Resume your previous activity Non-emergency contact: Primary Care Provider Call non-emergency contact if: you have any medication questions, your symptoms worsen, your pain is not controlled, your pain is worsening, your pain is unusual for you, your pain is concerning for you and you have a fever Follow-up/Referrals: Riley Mar MD [Primary Care Provider] - 02/18/20 2:00 pm (Date & Time 02/18/2020 2:00 PM Provider Kg Camilo MD Department Family Practice [facility] ) Diet: Heart Healthy Addtl Attending Provider Instructions: Please take all medications as instructed on discharge list below. Please follow-up with Dr. Mar with primary care at the time and date above. At this appointment you will discuss the new medications and ensure you have no issues with them and ensure there is been no further chest pain issues since the hospital discharge. It was a pleasure taking care of you! Please call if you have any questions or problems. You can reach a [facility] hospitalist on duty at [facility] 24 hours a day by calling [phone]. Take care of yourself. Clare Zavala, [facility] Hospitalist Pending Studies at Discharge: No Stand-Alone Forms: My [facility] Medications and DC Order Prescriptions: New ezetimibe [Zetia] 10 mg Tablet 10 mg PO QAM Qty: 30 RF: 2 nitroglycerin [Nitrostat] 0.4 mg Tablet, Sublingual 0.4 mg sublingual UD PRN (Reason: chest pain) Qty: 30 RF: 0 aspirin 81 mg Tablet,Delayed Release (Dr/Ec) 81 mg PO DAILY Qty: 90 RF: 1 atorvastatin 40 mg Tablet 40 mg PO QAM Qty: 30 RF: 1 Continued aripiprazole [Abilify] 10 mg Tablet 10 mg PO HS RF: 0 topiramate [Topamax] 100 mg tablet 200 mg PO QAM RF: 0 No Action topiramate [Topamax] 100 mg tablet 100 mg PO QPM RF: 0 Discharge Orders: Discharge Order (Routine); Ordered 02/14/20 Ordered By: Clare M. [place] Krames/Other Patient Handouts: Prediabetes, A1C Admission Data Admit Date/Time: 02/13/20 14:09 Attending Provider: Clare Zavala Admit Provider: Jessica Clements Primary Care Provider: Riley Mar Other Providers: Jessica Clements ; Celso Haji Other Interventions: Discharge Summary Assessment (RN) Last Done: 02/14/20 18:53
[2020-02-14 17:49] VITALS: BP 137/72; O2SAT 96
[2020-02-14 18:53] VITALS: PULSE 74
== END 2020-02-14 19:09 | disposition home or self-care (01) ==
LOC: 2S 10:57 → ED 10:57 → SUATTDRO 14:09 → 2S 14:43